=== PATIENT | male | born 1960 | race Caucasian/White ===

== ENCOUNTER 2016-06-26 08:53 | Emergency (ER) | payer SELFPAY ==
[2016-06-26] MEDS ORDERED: ASPIRIN 81 MG TABLET, CHEWABLE PO ONE (09:10)
[2016-06-26] MEDS ORDERED: PENICILLIN V POTASSIUM 500 MG TABLET PO ONE (09:47)
[2016-06-26] MEDS ORDERED: OXYCODONE-ACETAMINOPHEN 5-325 MG TABLET PO ONE (09:47)
[2016-06-26] MEDS ORDERED: FAMOTIDINE 20 MG TABLET PO ONE (10:14)
--- NOTE | 2016-06-26 10:26 | ER Document Report ---
ED General - General Chief Complaint: Chest Pain Stated Complaint: TOOTH PAIN Notes: Patient is a 55-year-old male who presents to the emergency Department with multiple complaints. He states today that his main complaint is his tooth pain. Patient states that he has horrible dentition and that over the past 3 days he has had severe upper and lower jaw pain that the primary site is right upper over teeth 3 and 4. Patient denies any foul odor, drainage or swelling at the site chest pain. Otherwise he is able to swallow without any difficulty. Patient states she is normally not able to chew because he has such terrible dentition. His secondary complaint today is chest pains. Patient states that he had an WA in March 2016 and he has cardiac stents that he cannot state location. Patient has been following with Dr. Ervin cardiology across the street. He was recently told that his chest pain since March has likely been related to indigestion but has not been prescribed medication for symptoms. Patient states he has chest pressure that is relieved with burping completely. States he finds it is burping more after eating. Otherwise he states he is intermittent and burning pains in his stomach. Patient denies any periods of chest pain described as pressure associated shortness of breath pressure is chest. Denies any chest pain when he came out of sleep for rest. Patient is also complaining of left shoulder pain. Patient states that he has a dull ache on the back of his left shoulder but occasionally radiates down his left arm states it is worse with physical activity and sometimes improves with rest. He is also complaining of foot pain. Patient has a history of diabetes mellitus and states that he has had tingling in his feet with muscle spasms in his toes over the past 3 Months. Does not have a primary care provider TRAVEL OUTSIDE OF THE [place] IN LAST 30 DAYS: No - Related Data Allergies/Adverse Reactions: acetaminophen [From Vicodin] Adverse Reaction (Verified 06/26/16 09:23) Hives hydrocodone [From Vicodin] Adverse Reaction (Verified 06/26/16 09:23) Hives Past Medical History - General Information source: Patient - Social History Smoking Status: Never Smoker Family History: Reviewed & Not Pertinent, Arthritis, CAD, Hyperlipidemia, Hypertension, Malignancy Patient has suicidal ideation: No Patient has homicidal ideation: No - Past Medical History Cardiac Medical History: Reports: Hx Heart Attack, Hx Hypertension Pulmonary Medical History: Denies: Hx Tuberculosis Neurological Medical History: Reports: Hx Migraine Endocrine Medical History: Reports: Hx Diabetes Mellitus Type 2 Renal/ Medical History: Denies: Hx Peritoneal Dialysis GI Medical History: Reports: Hx Gastroesophageal Reflux Disease, Hx Hiatal Hernia Musculoskeltal Medical History: Reports Hx Arthritis Psychiatric Medical History: Reports: Hx Depression Past Surgical History: Reports: Hx Abdominal Surgery - hernia repair, Hx Cardiac Catheterization - Mar 2016, Hx Herniorrhaphy, Hx Inguinal Hernia. Denies: Hx Pacemaker - Immunizations Hx Diphtheria, Pertussis, Tetanus Vaccination: Yes Review of Systems - Review of Systems Constitutional: No symptoms reported EENT: See HPI Cardiovascular: No symptoms reported Respiratory: No symptoms reported Gastrointestinal: See HPI. denies: Nausea Genitourinary: No symptoms reported Male Genitourinary: No symptoms reported Musculoskeletal: See HPI Skin: No symptoms reported Hematologic/Lymphatic: No symptoms reported Neurological/Psychological: No symptoms reported Physical Exam - Vital signs Vitals: Temp Pulse Resp BP Pulse Ox 97.9 F 77 18 129/88 H 96 06/26/16 09:05 06/26/16 09:05 06/26/16 09:05 06/26/16 09:05 06/26/16 09:05 - General General appearance: Appears well, Alert In distress: Mild - HEENT Head: Normocephalic Eyes: Normal Conjunctiva: Normal Mouth/Lips: Caries - all teeth, Dental fracture Mucous membranes: Normal Teeth diagram: 1 - pain 2 - pain Pharynx: Normal Neck: Normal - Respiratory Respiratory status: No respiratory distress Chest status: Nontender Breath sounds: Normal Chest palpation: Normal - Cardiovascular Rhythm: Regular Heart sounds: Normal auscultation Murmur: No Pulses: Normal: Radial, Dorsalis pedis Normal capillary refill: Yes - Abdominal Inspection: Normal Distension: No distension Bowel sounds: Normal Tenderness: Nontender Organomegaly: No organomegaly - Back Back: Normal, Nontender - Extremities General upper extremity: Normal inspection, Nontender, Normal color, Normal ROM , Normal strength, Normal temperature. No: Edema General lower extremity: Normal inspection, Nontender, Normal ROM, Normal strength, Normal temperature, Normal weight bearing. No: Edema, Normal color, Ross's sign Foot: Normal. No: Metatarsal compress. pain - Neurological Neuro grossly intact: Yes Cognition: Normal Orientation: AAOx4 [place] Coma Scale Eye Opening: Spontaneous Vu Coma Scale Verbal: Oriented [place] Coma Scale Motor: Obeys Commands [place] Coma Scale Total: 15 Speech: Normal - Skin Skin Temperature: Warm Skin Moisture: Dry Skin Color: Normal Course - Re-evaluation Re-evalutation: 06/26/16 11:50 Patient is a 55-year-old male who is hemodynamically stable, no acute distress and afebrile complaining of multitude symptoms but mainly toothache. Patient is due to see a dentist next week for evaluation and likely full extraction. Patient will be treated with by mouth penicillin and pain medication. In regards to his neck pain educated on calming causes of trapezius inflammation and exercises and ways to reduce that stress. For his indigestion, patient states that he will try the Pepcid and can follow-up with Dr. Ervin. Otherwise patient is medically stable stable for discharge - Vital Signs Vital signs: Temp Pulse Resp BP Pulse Ox 97.9 F 76 18 129/88 H 100 06/26/16 09:08 06/26/16 09:08 06/26/16 11:00 06/26/16 09:08 06/26/16 09:53 - Laboratory Result Diagrams: 06/26/16 10:30 Laboratory results interpreted by me: 06/26/16 10:30 Sodium 136.4 L Potassium 5.4 H BUN 31 H Glucose 315 H - EKG Interpretation by Ne EKG shows normal: Sinus rhythm Rate: Normal When compared to previous EKG there are: Changes noted - evidence of inverted T waves inleads II and avf conssitent with old WA in March. Otherwise, no acute changes or evidence of STEMI Discharge - Discharge Clinical Impression: Toothache GERD (gastroesophageal reflux disease) Qualifiers: Esophagitis presence: without esophagitis Qualified Code(s): K21.9 - Gastro- esophageal reflux disease without esophagitis Condition: Good Disposition: HOME, SELF-CARE Instructions: Penicillin V K ([facility]) Additional Instructions: CHEST PAIN OF UNCLEAR CAUSE: The exact cause of your chest pain isn't clear. Fortunately, there is no evidence of a dangerous medical condition. Further testing may be required to find the source of the pain. Most often, we find that this pain is coming from the chest wall -- the muscles or rib joints in the chest. But chest pain can come from the lung and lung lining, the esophagus, the heart valves or heart lining, and even the stomach or gallbladder. Rest. Eat lightly until the pain is gone. We may prescribe medicine for pain and inflammation. You should call the physician immediately if the pain radiates to the shoulder, jaw or arms; if you start to run a fever or develop a cough; or if you develop shortness of breath, or other new or alarming symptoms. NORMAL EXAM AND WORKUP: At this time, your examination and workup show no significant abnormality. No significant abnormal physical findings were noted. All laboratory, EKG, and imaging (x-ray, CT scans, ultrasound) studies that were ordered show no significant abnormality. Although your examination and all studies that were ordered showed no significant abnormal finding, there are no examinations and no studies that are 100% accurate. There is always the possibility that some abnormality could exist and not be detected with physical examination or within the limits and capabilities of laboratory and other studies. You should return or follow up as you were instructed on your visit today for further evaluation if your symptoms do not resolve. ACID REFLUX DISEASE (GERD): Gastro-Esophageal Reflux Disease (GERD) is caused by stomach acid refluxing back up into the esophagus. The valve at the end of the esophagus may be weak. This is common in persons with a hiatal hernia. GERD symptoms can include indigestion, chest pain, heartburn, or food "sticking." Certain foods, alcohol, and aspirin can make GERD worse. Treatment depends on the severity. Usually, antacids or acid-suppressing medicines are used. When the esophagus is acutely inflamed, the physician will often prescribe membrane-protective drugs such as Carafate. Some patients benefit from medication such as Reglan that tightens the valve at the top of the stomach. Avoid those foods that bring on your symptoms. For many people, these foods are coffee, chocolate, onions, garlic, and carbonated drinks. Don't use alcohol, aspirin, caffeine, or tobacco. Don't eat late at night -- within 4 hours of bedtime. Don't over-eat. If necessary, elevate the head of your bed about 4 inches so that stomach acid will not roll up into your esophagus. Call the doctor if you develop severe chest pain, inability to swallow fluids, fever, or worsening symptoms. ANTACID THERAPY: You have been instructed to start antacid therapy. Antacids directly neutralize stomach acid. This is useful for acid irritation of the esophagus, gastritis, and ulcers. You should take two tablespoons of antacid one hour after each meal and three hours after each meal. If you are not eating, take the antacid every two hours. If you are using a concentrate (such as Maalox TC), use only one tablespoon. Many antacids affect the bowels. The most common problem is diarrhea. In this case, a pure aluminum hydroxide antacid (such as AlternaGel) can be substituted for some or all doses. If the problem is constipation, add a teaspoon of Milk of Magnesia to each dose. Call the doctor if you experience continued diarrhea or constipation, or if you develop lightheadedness, bloody stool or vomitus, severe abdominal pain, or black stool. FOLLOW-UP CARE: If you have been referred to a physician for follow-up care, call the physician s office for an appointment as you were instructed or within the next two days. If you experience worsening or a significant change in your symptoms, notify the physician immediately or return to the Emergency Department at any time for re-evaluation. Toothache Your pain is due to dental decay. The tooth must be repaired in order for you to feel better. You will, therefore, be referred to a dentist. Severe swelling or drainage around a tooth usually means a deep dental abscess. This also requires evaluation and treatment by the dentist, but antibiotics may be prescribed while awaiting dental treatment. You should be rechecked immediately if you develop major swelling of the face, increasing pain, a lump in the jaw or gums, headache, or fever. Prescriptions: Oxycodone HCl/Acetaminophen [Percocet 5-325 mg Tablet] 1 tab PO Q6HP PRN #15 tab PRN Reason: Famotidine [Pepcid 20 mg Tablet] 20 mg PO DAILY #12 tablet Penicillin V Potassium [Penicillin Vk 500 mg Tablet] 500 mg PO BID 10 Days Referrals: MIGNON ERVIN MD [Primary Care Provider] - Follow up as needed
[2016-06-26 11:18] LABS: ALANINE AMINOTRANSFERASE 34 U/L (21-72); ALBUMIN 4.1 g/dL (3.5-5.0); ALKALINE PHOSPHATASE 82 U/L (38-126); ANION GAP 10 (5-19); ASPARTATE AMINO TRANSFERASE 18 U/L (17-59); BILIRUBIN,TOTAL 0.6 mg/dL (0.2-1.3); BLOOD UREA NITROGEN 31 mg/dL (7-20); CALCIUM 9.6 mg/dL (8.4-10.2); CARBON DIOXIDE 27 mmol/L (22-30); CHLORIDE 99 mmol/L (98-107); CREATININE RESULT 0.96 mg/dL (0.52-1.25); GLUCOSE 315 mg/dL (75-110); POTASSIUM 5.4 mmol/L (3.6-5.0); SODIUM 136.4 mmol/L (137-145); TOTAL PROTEIN 6.6 g/dL (6.3-8.2)
[2016-06-26 12:02] VITALS: BP 122/84
--- NOTE | 2016-06-26 15:48 | EKG REPORT ---
SEVERITY:- ABNORMAL ECG - SINUS RHYTHM INFERIOR INFARCT, AGE INDETERMINATE : Confirmed by: Danilo Ashton 26-Jun-2016 15:48:16
== END 2016-06-26 11:58 | disposition home or self-care (01) ==
LOC: ER 08:53
DX: K08.89 Other specified disorders of teeth and supporting structures (principal); K21.9 Gastro-esophageal reflux disease without esophagitis; R07.9 Chest pain, unspecified
CPT/HCPCS: 36415; 80053; 93005; 93010; 99285

== ENCOUNTER 2016-11-28 10:13 | Observation (INO) | payer SELFPAY ==
--- NOTE | 2016-11-28 10:28 | ER Document Report ---
ED General - General Stated Complaint: CHEST PAIN Time Seen by Provider: 11/28/16 10:18 Notes: 56-year-old male with a history of FL and all the risk factors, presents to the ED with generalized weakness dizziness and sudden onset left-sided chest pain radiating to the right chest, dull and pressure-like, similar to prior MRI, approximately 1 hour ago while taking a shower. Associated with sweating nausea and vomiting. Brought in by EMS. No syncope. EMS gave aspirin, the also give nitro with relief of pain to the applied a nitroglycerin patch. That resulted in hypotension to 90 systolic which was treated with 1 L of fluid. Patient is currently pain-free, except for some tooth pain. He does not have her follow-up with cardiology, Dr. Ervin, but states he is taking all his medications. TRAVEL OUTSIDE OF THE [place] IN LAST 30 DAYS: No - Related Data Allergies/Adverse Reactions: acetaminophen [From Vicodin] Adverse Reaction (Verified 06/26/16 09:23) Hives hydrocodone [From Vicodin] Adverse Reaction (Verified 06/26/16 09:23) Hives Past Medical History - Social History Smoking Status: Never Smoker Family History: Reviewed & Not Pertinent, Arthritis, CAD, Hyperlipidemia, Hypertension, Malignancy - Past Medical History Cardiac Medical History: Reports: Hx Heart Attack, Hx Hypertension Pulmonary Medical History: Denies: Hx Tuberculosis Neurological Medical History: Reports: Hx Migraine Endocrine Medical History: Reports: Hx Diabetes Mellitus Type 2 Renal/ Medical History: Denies: Hx Peritoneal Dialysis GI Medical History: Reports: Hx Gastroesophageal Reflux Disease, Hx Hiatal Hernia Musculoskeltal Medical History: Reports Hx Arthritis Psychiatric Medical History: Reports: Hx Depression Past Surgical History: Reports: Hx Abdominal Surgery - hernia repair, Hx Cardiac Catheterization - Mar 2016, Hx Herniorrhaphy, Hx Inguinal Hernia. Denies: Hx Pacemaker - Immunizations Hx Diphtheria, Pertussis, Tetanus Vaccination: Yes Review of Systems - Review of Systems Notes: GEN: Denies fever, chills, weight loss ENT: Denies sore throat, nasal discharge, ear pain EYES: Denies blurry vision, eye pain, discharge CV: D pain RESP: Denies cough, shortness of breath, wheezing GI: No vomiting or diarrhea MSK: Denies joint pain/swelling, edema, SKIN: Denies rash, skin lesions LYMPH: Denies swollen glands/lymph nodes NEURO: Denies headache, focal weakness or numbness, dizziness PSYCH: Denies depression, suicidal or homicidal ideation -: Yes ROS unobtainable due to patient's medical condition Physical Exam - Vital signs Vitals: Pulse Ox 98 11/28/16 10:15 - Notes Notes: General: No acute distress, well-nourished slightly pale. Wearing a nitroglycerin patch. Head: Atraumatic, normocephalic ENT: Mouth normal, oropharynx moist, no exudates or tonsillar enlargement Eyes: Conjunctiva normal, pupils equal, lids normal Neck: No JVD, supple, no guarding CVS: Normal rate, regular rhythm, no murmurs Resp: No resp distress, equal and normal breath sounds bilaterally GI: Nondistended, soft, no tenderness to palpation, no rebound or guarding Ext: No deformities, no edema, normal range of motion in upper and lower ext Skin: No rash, warm Lymphatic: No lymphadeopathy noted Neuro: Awake, alert. Face symmetric. Course - Re-evaluation Re-evalutation: 11/28/16 10:27 56-year-old male presents with typical sounding chest pain and a history of FL. Questionable compliance with meds. Initial prehospital hypotension likely due to nitroglycerin, now resolved. Exam normal except for pallor. EKG nonischemic at this time. Patient had a heart score of 4 assuming a normal troponin. Despite this, his story is concerning, and he is being kept painfree by the nitroglycerin. Will be admitted for possible unstable angina. In the meantime will gets serial EKG, labs, chest x-ray. 11/28/16 11:25 Patient remains pain-free. Labs are normal. EKG and chest x-ray normal. Given his risk factors he was admitted. Accepted by Dr. Coto at 11:25 AM to observation telemetry. - Vital Signs Vital signs: Temp Pulse Resp BP Pulse Ox 98.2 F 12 130/69 H 95 11/28/16 10:27 11/28/16 11:01 11/28/16 11:01 11/28/16 11:01 - Laboratory Result Diagrams: 11/28/16 10:20 11/28/16 10:20 Laboratory results interpreted by me: 11/28/16 11/28/16 10:20 10:20 WBC 11.0 H Hgb 13.0 L BUN 21 H Glucose 305 H AST 13 L Creatine Kinase 42 L Total Protein 5.3 L Albumin 3.0 L - Diagnostic Test Radiology reviewed: Image reviewed Radiology results interpreted by me: 11/28/16 11:25 Negative chest - EKG Interpretation by Me EKG shows normal: Sinus rhythm Rate: Normal Rhythm: NSR Additional EKG results interpreted by me: 11/28/16 10:27 No acute ischemic change Discharge - Discharge Admitting Provider: Hospitalist Unit Admitted: Telemetry Referrals: MIGNON ERVIN MD [Primary Care Provider] - Follow up as needed
[2016-11-28 10:38] LABS: ABSOLUTE BASOPHILS # (AUTO) 0.1 10^3/uL (0.0-0.2); ABSOLUTE EOSINOPHILS # (AUTO) 0.2 10^3/uL (0.0-0.6); ABSOLUTE LYMPHOCYTES (AUTO) 4.3 10^3/uL (0.5-4.7); ABSOLUTE NEUT (AUTO) 5.4 10^3/uL (1.7-8.2); BASOPHILS % (AUTO) 1.1 % (0-2); EOSINOPHILS % (AUTO) 1.9 % (0-6); HEMATOCRIT 39.1 % (37.9-51.0); HGB HCT DIFFERENCE -0.1; LYMPHOCYTES % (AUTO) 38.7 % (13-45); MEAN CORPUSCULAR HGB CONC 33.3 g/dL (32.0-36.0); MEAN CORPUSCULAR VOLUME 84 fl (80-97); MONOCYTES % (AUTO) 9.4 % (3-13); RED BLOOD COUNT 4.64 10^6/uL (4.35-5.55); RED CELL DISTRIBUTION WIDTH 13.7 % (11.5-14.0); SEGMENTED NEUTROPHILS % (AUTO) 48.9 % (42-78)
[2016-11-28 10:57] LABS: ALANINE AMINOTRANSFERASE 23 U/L (21-72); ALKALINE PHOSPHATASE 72 U/L (38-126); ANION GAP 8 (5-19); ASPARTATE AMINO TRANSFERASE 13 U/L (17-59); BILIRUBIN,DIRECT 0.3 mg/dL (0.0-0.4); BILIRUBIN,TOTAL 0.5 mg/dL (0.2-1.3); BLOOD UREA NITROGEN 21 mg/dL (7-20); CALCIUM 9.3 mg/dL (8.4-10.2); CARBON DIOXIDE 26 mmol/L (22-30); CHLORIDE 104 mmol/L (98-107); CREATINE KINASE 42 U/L (55-170); CREATININE RESULT 0.98 mg/dL (0.52-1.25); GLUCOSE 305 mg/dL (75-110); POTASSIUM 4.8 mmol/L (3.6-5.0); SODIUM 137.8 mmol/L (137-145); TOTAL PROTEIN 5.3 g/dL (6.3-8.2)
--- NOTE | 2016-11-28 11:05 | RADIOLOGY REPORT (SQ) ---
EXAM DESCRIPTION: CHEST SINGLE VIEW COMPLETED DATE/TIME: 11/28/2016 10:48 am REASON FOR STUDY: bed 5 cp COMPARISON: 09/28/2015 NUMBER OF VIEWS: One view. TECHNIQUE: Single frontal radiographic view of the chest acquired. LIMITATIONS: None. FINDINGS: LUNGS AND PLEURA: No opacities, masses or pneumothorax. No pleural effusion. MEDIASTINUM AND HILAR STRUCTURES: No masses. Contour normal. HEART AND VASCULAR STRUCTURES: Heart normal in size. Normal vasculature. BONES: No acute findings. HARDWARE: None in the chest. OTHER: No other significant finding. IMPRESSION: NO SIGNIFICANT RADIOGRAPHIC FINDING IN THE CHEST. TECHNICAL DOCUMENTATION: JOB ID: [id number] [employer] All Rights Reserved
[2016-11-28 11:10] LABS: CREATINE KINASE MB 0.52 ng/mL (<4.55)
[2016-11-28 11:12] LABS: TROPONIN I < 0.012 ng/mL
[2016-11-28] MEDS ORDERED: ONDANSETRON HCL INJ/PF 4 MG/2 ML SDV IV ONE (11:29)
[2016-11-28] MEDS ORDERED: DEXTROSE 40% GEL 15 GM TUBE PO PRN ×2 (12:01)
[2016-11-28] MEDS ORDERED: ONDANSETRON HCL INJ/PF 4 MG/2 ML SDV IV PRN (12:01)
[2016-11-28] MEDS ORDERED: DEXTROSE 50%-WATER 25 GM/50 ML DISP.SYRIN IV PRN ×2 (12:01)
[2016-11-28] MEDS ORDERED: GLUCAGON,HUMAN RECOMB 1 MG INJ IM PRN (12:01)
[2016-11-28] MEDS ORDERED: REGADENOSON INJ 0.4 MG/5 ML DISP.SYRIN IV ONE (12:25)
[2016-11-28 12:50] LABS: PROTHROMBIN TIME 12.7 SEC (11.4-15.4)
[2016-11-28 12:51] LABS: PARTIAL THROMBOPLASTIN TIME 22.8 SEC (23.5-35.8)
[2016-11-28] MEDS ORDERED: METOPROLOL TARTRATE 25 MG TABLET PO ONE (13:00)
[2016-11-28] MEDS ORDERED: LISINOPRIL 5 MG TABLET PO ONE (13:00)
[2016-11-28] MEDS ORDERED: ISOSORBIDE MONONITRATE 60 MG TAB.ER.24H PO ONE (13:00)
[2016-11-28] MEDS ORDERED: ASPIRIN 81 MG TABLET, ENT COATED PO ONE (13:00)
--- NOTE | 2016-11-28 13:00 | PDOC H&P ---
History of Present Illness Admission Date/PCP: 11/28/16 12:01 MIGNON ERVIN Patient complains of: chest pain History of Present Illness: DAVION DELCID is a 56 year old male presents to the ED from home with worsening chest pain described as left sided sharp stabbing pain radiating into the right chest occurring during hot shower with asct'd nausea, vomiting, dizziness, ZAMORANO, jaw and teeth pain - all similar to the symptoms he experienced with his AMI this past April requiring stent placement at [facility]. He reports intermittent symptoms like those above but less intense on a daily basis since his MD. He reported this to Dr Ervin, his usual case monitor on f/ u visit in July and was started on Imdur but has not noticed a difference and has not sought further medical care until today, nearly 5 months later. eval in ED so far negative for acute ischemia but given his risk factors and prior hx of similar symptoms, we were asked to admit for further eval and treatment. Past Medical History Cardiac Medical History: Reports: Myocardial Infarction, Hypertension Pulmonary Medical History: Denies: Tuberculosis Neurological Medical History: Reports: Migraine Endocrine Medical History: Reports: Diabetes Mellitus Type 2 GI Medical History: Reports: Gastroesophageal Reflux Disease, Hiatal Hernia Musculoskeltal Medical History: Reports: Arthritis Psychiatric Medical History: Reports: Depression Past Surgical History Past Surgical History: Reports: Cardiac Catheterization - Mar 2016, Herniorrhaphy Denies: Pacemaker Social History Smoking Status: Never Smoker Hx Recreational Drug Use: No Hx Prescription Drug Abuse: No - Advance Directive Resuscitation Status: Full Code Family History Family History: Arthritis, CAD, Hyperlipidemia, Hypertension, Malignancy Parental Family History Reviewed: Yes Children Family History Reviewed: Yes Sibling(s) Family History Reviewed.: Yes Medication/Allergy Home Medications: Atorvastatin Calcium [Lipitor 80 mg Tablet] 80 mg PO QHS 11/28/16 Glipizide [Glipizide ER] 5 mg PO QAM 11/28/16 Lisinopril [Prinivil 5 mg Tablet] 5 mg PO DAILY 11/28/16 Metoprolol Tartrate [Lopressor 25 mg Tablet] 25 mg PO Q12 11/28/16 Pantoprazole Sodium [Protonix] 40 mg PO DAILY 11/28/16 Allergies/Adverse Reactions: acetaminophen [From Vicodin] Adverse Reaction (Verified 06/26/16 09:23) Hives hydrocodone [From Vicodin] Adverse Reaction (Verified 06/26/16 09:23) Hives Review of Systems All systems: reviewed and no additional remarkable complaints except as stated - as per HPI, all systems reviewed, remaining systems negative Physical Exam Vital Signs: Temp Pulse Resp BP Pulse Ox 98.2 F 12 130/69 H 95 11/28/16 10:27 11/28/16 11:01 11/28/16 11:01 11/28/16 11:01 General appearance: PRESENT: mild distress - retching when i arrived, well- developed, well-nourished Head exam: PRESENT: atraumatic, normocephalic Eye exam: PRESENT: EOMI. ABSENT: conjunctival injection, scleral icterus Teeth exam: PRESENT: dental caries, poor dentation Neck exam: PRESENT: full ROM. ABSENT: JVD Respiratory exam: PRESENT: clear to auscultation madie. ABSENT: accessory muscle use, unlabored Cardiovascular exam: PRESENT: RRR. ABSENT: systolic murmur, tachycardia Pulses: PRESENT: normal radial pulses, normal dorsalis pedis pul Vascular exam: PRESENT: normal capillary refill GI/Abdominal exam: PRESENT: normal bowel sounds, soft. ABSENT: tenderness Musculoskeletal exam: PRESENT: ambulatory, full ROM Neurological exam: PRESENT: alert, awake, oriented to person, oriented to place , oriented to time Psychiatric exam: PRESENT: appropriate affect, normal mood Skin exam: PRESENT: warm. ABSENT: dry - diaphoretic and pale Results Laboratory Results: 11/28/16 10:20 11/28/16 10:20 MCV 84 fl (80-97) 11/28/16 10:20 MCH 28.0 pg (27.0-33.4) 11/28/16 10:20 MCHC 33.3 g/dL (32.0-36.0) 11/28/16 10:20 RDW 13.7 % (11.5-14.0) 11/28/16 10:20 Seg Neutrophils % 48.9 % (42-78) 11/28/16 10:20 Lymphocytes % 38.7 % (13-45) 11/28/16 10:20 Monocytes % 9.4 % (3-13) 11/28/16 10:20 Eosinophils % 1.9 % (0-6) 11/28/16 10:20 Basophils % 1.1 % (0-2) 11/28/16 10:20 Absolute Neutrophils 5.4 10^3/uL (1.7-8.2) 11/28/16 10:20 Absolute Lymphocytes 4.3 10^3/uL (0.5-4.7) 11/28/16 10:20 Absolute Monocytes 1.0 10^3/uL (0.1-1.4) 11/28/16 10:20 Absolute Eosinophils 0.2 10^3/uL (0.0-0.6) 11/28/16 10:20 Absolute Basophils 0.1 10^3/uL (0.0-0.2) 11/28/16 10:20 Chloride 104 mmol/L (98-107) 11/28/16 10:20 Carbon Dioxide 26 mmol/L (22-30) 11/28/16 10:20 Anion Gap 8 (5-19) 11/28/16 10:20 Est GFR ( Amer) > 60 (>60) 11/28/16 10:20 Est GFR (Non-Af Amer) > 60 (>60) 11/28/16 10:20 Glucose 305 mg/dL (75-110) H 11/28/16 10:20 Calcium 9.3 mg/dL (8.4-10.2) 11/28/16 10:20 Total Bilirubin 0.5 mg/dL (0.2-1.3) 11/28/16 10:20 AST 13 U/L (17-59) L 11/28/16 10:20 ALT 23 U/L (21-72) 11/28/16 10:20 Alkaline Phosphatase 72 U/L (38-126) 11/28/16 10:20 Total Protein 5.3 g/dL (6.3-8.2) L 11/28/16 10:20 Albumin 3.0 g/dL (3.5-5.0) L 11/28/16 10:20 Lipase 142.4 U/L (23-300) 11/28/16 10:20 11/28/16 11/28/16 10:20 10:20 Creatine Kinase 42 L CK-MB (CK-2) 0.52 Troponin I < 0.012 EKG Comments: NSR with no acute changes Impressions: Chest X-Ray 11/28/16 10:15 IMPRESSION: NO SIGNIFICANT RADIOGRAPHIC FINDING IN THE CHEST. Assessment & Plan - Diagnosis (1) ACS (acute coronary syndrome) Is this a current diagnosis for this admission?: YesPlan: new with hx of similar presentation, worrisome for recurrent ischemia though none noted clinically as yet. admit for monitoring and cardiac evaluation with serial enzymes and ecg's. consult dr garcia for decisions regarding stress testing and/or transfer for cath vs aggressive Rx management. ck CTA chest for dissection, etc. (2) CAD (coronary artery disease) Qualifiers: Coronary Disease-Associated Artery/Lesion type: [place] artery Associated angina: with unstable angina Is this a current diagnosis for this admission?: YesPlan: as above; prior stents (3) Diabetes Qualifiers: Diabetes mellitus type: type 2 Diabetes mellitus complication status: with neurologic complications Diabetes mellitus complication detail: with autonomic neuropathy Diabetes mellitus custodial insulin use: without custodial use Qualified Code(s): E11.43 - Type 2 diabetes mellitus with diabetic autonomic (poly)neuropathy Is this a current diagnosis for this admission?: YesPlan: stable; ck A1c and cover with SSI, hold metformin for contrasted study (4) HTN (hypertension) Qualifiers: Hypertension type: essential hypertension Qualified Code(s): I10 - Essential (primary) hypertension Is this a current diagnosis for this admission?: YesPlan: confirm and resume home medical regimen - Time Time Spent: 50 to 70 Minutes Medications reviewed and adjusted accordingly: Yes
--- NOTE | 2016-11-28 13:19 | RADIOLOGY REPORT (SQ) ---
EXAM DESCRIPTION: CTA CHEST COMPLETED DATE/TIME: 11/28/2016 12:55 pm REASON FOR STUDY: chest pain, eval for dissection COMPARISON: AP chest 11/28/2016, 02/13/2013 TECHNIQUE: CT scan of the chest performed using helical scanning technique with dynamic intravenous contrast injection. Images reviewed with lung, soft tissue and bone windows. Reconstructed coronal and sagittal MPR images reviewed. Additional 3 dimensional post-processing performed to develop Maximal Intensity Projection images (MO P). All images stored on PACS. All CT scanners at this facility use dose modulation, iterative reconstruction, and/or weight based d osing when appropriate to reduce radiation dose to as low as reasonably achievable (ALARA). [facility]: Dose Right [facility]: CareDose [facility]: Dose Right [facility]: Teradose 4D [facility]: Fixber CONTRAST TYPE AND DOSE: contrast/concentration: Isovue 370.00 mg/ml; Total Contrast Delivered: 68.0 ml; Total Saline Delivered: 110.0 ml RENAL FUNCTION: Creatinine 0.98 RADIATION DOSE: Up-to-date CT equipment and radiation dose reduction techniques were employed. CTDIv ol: 9.4 - 15.5 mGy. DLP: 570 mGy-cm. . LIMITATIONS: None. FINDINGS: LUNGS AND PLEURA: No masses, infiltrates, pneumothorax. No pleural effusions, calcificati ons. AORTA AND GREAT VESSELS: No aneurysm or dissection. HEART: No pericardial effusion. PULMONARY ARTERIES: No emboli visualized in the main pulmonary arteries or the segmental branches. HILAR AND MEDIASTINAL STRUCTURES: No identified masses or abnormal nodes. HARDWARE: Right-sided coronary stents are present. UPPER ABDOMEN: No significant findings. Limited exam. THYROID AND OTHER SOFT TISSUES: No masses. No adenopathy. BONES: No acute or significant finding. 3D MIPS: Confirm above findings. OTHER: No other significant finding. IMPRESSION: NORMAL CTA OF THE CHEST. NO PULMONARY EMBOLI. NO THORACIC AORTIC DISSECTION TECHNICAL DOCUMENTATION: JOB ID: [id number] Quality ID # [id number]: Final reports with documentation of one or more dose reduction techniques (e.g., Au tomated exposure control, adjustment of the mA and/or kV according to patient size, use of iterative reconstruction technique) 2010 [employer]- All Rights Reserved
[2016-11-28] MEDS: NORMAL SALINE 1000 ML 1,000 ML IV PRN (13:54)
[2016-11-28] MEDS: IBUPROFEN 600 MG TABLET PO PRN ×2 (14:26→23:15)
[2016-11-28] MEDS ORDERED: AMOXICILLIN TRIHYDRATE 500 MG CAPSULE PO ONE (15:00)
[2016-11-28] MEDS ORDERED: CLOPIDOGREL BISULFATE 75 MG TABLET PO ONE (15:45)
[2016-11-28] MEDS: INSULIN LISPRO 100 UNIT/ML 3 ML VIAL SUBCUT PRN ×2 (16:27→23:10)
[2016-11-28] MEDS: METOPROLOL TARTRATE 25 MG TABLET PO SCH (21:20)
[2016-11-28] MEDS: AMOXICILLIN TRIHYDRATE 500 MG CAPSULE PO SCH (21:23)
[2016-11-28] MEDS ORDERED: ATORVASTATIN CALCIUM 80 MG TABLET PO SCH (22:00)
--- NOTE | 2016-11-28 23:43 | EKG REPORT ---
SEVERITY:- ABNORMAL ECG - SINUS RHYTHM INFERIOR INFARCT, AGE INDETERMINATE : Confirmed by: Danilo Ashton 28-Nov-2016 23:42:42
--- NOTE | 2016-11-29 00:19 | CONSULTATION REPORT E ---
Consultation Report NAME: DAVION DELCID : [id number] AGE: 56Y DATE: 11/28/2016 404 B TO: MARISOL VERDIN M.D. FROM: THALIA GUNN M.D. Requesting Physician Note that the patient was seen at 3 p.m. Forty minutes spent on this patient with more than 50% of the time spent on direct patient care and this case, as mentioned later, involves highly complex medical decision making. HISTORY OF PRESENT ILLNESS: The patient is a 56-year-old male with a history of ST elevation DE in the inferior wall in April 2016, status post stents in the right coronary artery and PLV, states that since the past 5 months has been having chest pains with exertion and occasionally at rest. He complains of this as a sharp pain in the left front of the chest with radiation across the chest to the right side. It lasts for a minute or so and has several episodes in a day. He was placed on Imdur but this did not help. He also has shortness of breath along with this. He also has a history of nighttime palpitations which he describes as forceful beating of the heart. He states that the current chest pain is much different from his chest pain when he has the inferior wall ST elevation DE where he had gas-like pains and epigastric discomfort. He denies any PND or orthopnea but has dyspnea on exertion and palpitation but no syncope. He seems to be slightly anxious and also depressed. There is no syncopal episode and there are no TIA or CVA symptoms. In view of the escalation of the symptoms, the patient states that he came to the emergency room and was admitted for further cardiac workup. He denies any leg edema. There is no orthopnea or PND. PAST MEDICAL HISTORY: Positive for history of hypertension. He has a history of myocardial infarction with an inferior wall ST elevation DE in April 2016. He was airlifted from the field to [facility] where he underwent a cardiac catheterization. This showed his left main had no disease. The left anterior descending artery is of small caliber diffusely diseased vessel which wraps around the cardiac apex. There is a large first and moderate second diagonal. The LAD and its branches have severe diffuse disease with the most severe focus of stenosis being 60% to 70% stenosis prior to the second diagonal branch. The first diagonal has an ostial 80% stenosis. The circumflex consists of a large ramus intermedius, a small obtuse marginal 1 and a moderate obtuse marginal 2. His ramus intermedius has approximately 80% stenosis. It is of small caliber and diffusely diseased. The ostial circumflex has 80% stenosis with moderate plaguing noted in the mid and distal circumflex. The right coronary artery is dominant with a PDA and a subtotally occluded large bifurcating PLV branch. There is diffuse proximal 40% stenosis and 95% mid stenosis and a 50% distal stenosis and a 99% stenosis of the proximal portion of PLV branch. He had a bare metal stent placed in the mid right coronary artery and also a bare metal stent was placed in the proximal portion of the PLV and he was treated medically. He was on Brilinta and aspirin but since he could not afford Brilinta, he has been placed on Plavix and the patient states that the last dose of aspirin and Plavix was yesterday and he also got aspirin today. He has no history of congestive heart failure. There is no PND or orthopnea. He has nighttime palpitations he says which is like a force of rapid beating of the heart. There is no syncope or near syncope. There is no history of congenital heart disease. There is no history of rheumatic fever. He has a history of diabetes mellitus type 2 noninsulin dependent. He also has a history of hyperlipidemia. There is no history of thyroid disease. He has no history of TIA or CVA. He has a history of migraines. He has a history of anxiety and depression. There is no history of chronic kidney disease. He complains of arthritis but no collagen vascular disease. There is no history of congestive heart failure. His echocardiogram done on 04/03/16 showed normal mitral valve structure and function, no significant mitral regurgitation. There is mild stenosis of the trileaflet aortic valve without stenosis. There is no aortic insufficiency. There is mild tricuspid regurgitation seen. Left atrium is of normal size. The left ventricle size is normal. Global left ventricular systolic function is normal. Estimated ejection fraction of 55% to 60%. There is mild concentric left ventricular hypertrophy seen. There is no segmental wall motion abnormalities appreciated. There is abnormal left ventricular filling pattern consistent with diastolic dysfunction. PAST MEDICAL HISTORY: Positive for cardiac catheterization and stent placement in March 2016 and he has a history of herniorrhaphy. SOCIAL HISTORY: The patient does not smoke. There is no history of EtOH abuse. FAMILY HISTORY: Positive for arthritis, coronary artery disease, hyperlipidemia, hypertension and malignancy in patient and patient's brother. He states one of his sisters has a clotting disorder and has had an IVC filter placed. DISPOSITION: The patient is a FULL CODE. He states that his mother and brother are his surrogate healthcare decision maker. REVIEW OF SYSTEMS: CONSTITUTIONAL: Denies any fever, chills or rigors. Complains of generalized fatigue and migraines and weakness. HEENT: Head: History of migraines, history of headaches off and on. Eyes: The patient states that when he closes his right eye, he cannot see with his left eye; this has been recent. Also there is blurred vision in the right eye. There is no prior history of diabetic retinopathy. Ears: No history of hearing loss, no history of tinnitus, no history of recurrent ear infections. There is no vertigo. Nose: There is no history of nosebleeds. There is no history of nasal polyps. There is no history of hay fever. Mouth: No history of altered taste sensation, no history of ulcers in the mouth, no bleeding from the gums. Throat: There is no odynophagia or dysphagia, no history of recurrent sore throats. SKIN: There is no psoriasis. There is no yellowish discoloration of the skin. There is no pruritus. NECK: There is no symptoms of C-spine arthritis. There is no swelling in the neck and there is no goiter. LUNGS: No history of asthma or COPD. history of sleep apnea. No history of pulmonary embolism. No history of cough or sputum production. No history of wheezing. History of pleuritic chest pain. CARDIAC: History of hypertension present. History of coronary artery disease. History of inferior wall ST elevation DE with symptoms of burping and epigastric discomfort different from the cardiac pain. Although this pain is atypical, the patient states that it usually occurs when he exerts or ambulates himself. He also has decreased effort tolerance and also complains of shortness of breath with minimal exertion. He also has postural palpitations and awareness of postural beating of his heartbeats at night. He has no history of congestive heart failure, no history of leg edema, no history of syncope. No history of PND or orthopnea. MUSCULOSKELETAL: Complains of arthritis but no collagen vascular disease. States he has spinal stenosis and chronic back pain. ENDOCRINE: History of diabetes mellitus type 2 non-insulin dependent. No history of thyroid disease. He has no polydipsia or polyuria. No history of heat or cold intolerance. METABOLIC: History of hyperlipidemia present. GASTROINTESTINAL: History of GERD and hiatal hernia. No history of GI bleed. No history of cirrhosis. No history of fatty food intolerance. No history of altered bowel movements. No abdominal pain. No history of pancreatitis. RENAL: No history of chronic kidney disease. No history of symptoms of UTI. No history of hematuria, polyuria or dysuria. No symptoms of enlarged prostate. CENTRAL NERVOUS SYSTEM: No history of TIA or CVA. History of migraines present. No history of seizures. No history of sleep apnea and no history of gait intolerance. PSYCHIATRIC: No history of anxiety or depression. No history of suicidal or homicidal ideation. VASCULAR: No history of calf or buttock claudication. No history of DVT. HEMATOLOGICAL: No history of bleeding diathesis. No history of clotting disorders. He has chronic tooth pain due to bad teeth he states and he has off and on dental infections. At present also he has tooth pain. ALLERGIES: 1. OXYCODONE. 2. VICODIN. MEDICATIONS: 1. Amoxicillin 500 mg p.o. q.8 h. 2. Aspirin 81 mg p.o. x1 and 81 mg p.o. daily. 3. Atorvastatin 80 mg p.o. at bedtime. 4. Hypoglycemic precautions with glucose 40% gel 15 gm and 30 gm respectively p.r.n. hypoglycemia. 5. Dextrose 50% 12.5 gm and 25 gm IV p.r.n. hypoglycemia. 6. Glucagon 1 mg IM p.r.n. hypoglycemia. 7. Normal saline at 75 mL/hr 8. Accu-Chek before meals t.i.d. and at bedtime with sliding scale insulin coverage. 9. Isosorbide 30 mg p.o. daily. 10. Lisinopril 5 mg p.o. daily. 11. Metoprolol 25 mg p.o. q.12 h. 12. Zofran 4 mg IV q.6 h. p.r.n. PHYSICAL EXAMINATION: GENERAL: Patient is present at rest denies any chest pain or discomfort. He is slightly overweight. He is well groomed. VITAL SIGNS: He is afebrile with a temperature of 97.3 degrees Fahrenheit. Pulse is 58 beats per minute, blood pressure is 106/61, respirations are 18 per minute, 02 sats are 97% on room air. HEENT: Head is atraumatic, normocephalic. Eyes: Pupils are equal, round, regular, reactive to light and accommodation. As mentioned earlier, the patient states that he has loss of vision if he closes his right eye with the loss of vision being in his left eye and he has blurred vision in the right. Ears: Tympanic membranes are intact. External auditory canals are clear. There are no lesions of the pinnae. Nose: There is no deviated nasal septum. There are no nasal polyps. There is no inflammation of the nasal mucous membranes. Mouth: Mucous membranes of the mouth are moist. Tongue is moist. There are no ulcers. There is no bleeding from the gums. Throat: There is no redness of the oropharynx. There is no exudate. SKIN: There are no skin rashes. There is no petechia or ecchymosis. There are no skin lesions. NECK: Supple. There is no JVD. Carotids are equal. There is no bruit. There is no goiter. There is no JVD. There is no lymphadenopathy. Trachea is central. LUNGS: Clear to auscultation and percussion. HEART: S1 and S2 are heard. There is no S3 gallop. There is no S4 gallop. There is a systolic murmur in the left sternal border and the apex. There is no rub. ABDOMEN: Soft, nontender. There is no hepatosplenomegaly. Bowel sounds are well heard. There are no tender areas or masses. EXTREMITIES: Femorals are well felt. There are no femoral bruits. Leg pulses are well felt. There is no pedal edema. There is no DVT or cellulitis. There is no calf tenderness. There is no cyanosis or clubbing. CENTRAL NERVOUS SYSTEM: The patient is conscious, awake, alert, oriented x3 with no focal deficits. PSYCHIATRIC: The patient appears to be slightly anxious and also appears to be depressed. DIAGNOSTIC TEST RESULTS: The patient's chest and abdomen CTA shows normal CT of the chest with no pulmonary emboli, no thoracic or aortic dissection. The patient's chest x-ray is within normal limits. His EKG shows sinus rhythm, old inferior wall DE, no acute changes. His white count is 11,000, his hemoglobin is 13, his hematocrit is 39.1, platelet count is 342,000. His pro time is 12.7, his INR is 0.89, his PTT is 22.8. Earlier the patient's sodium was 137.8, potassium 4.8, chloride 104, CO2 26, the patient's BUN is 21, creatinine 0.98, GFR is greater than 60, glucose is 305. His liver function tests are normal with a low AST of 13, CK is 42, CPK-MB is negative, his first set of troponin I is less than 0.12, lipase is 142.4, total protein is 5.3, albumin is 3.0. IMPRESSION: 1. Atypical chest pain, but the patient gives conflicting history to different providers. 2. Coronary artery disease with a history of ST elevation DE of the inferior wall in March 2016. 3. History of stents in the right coronary artery and PLV with three-vessel coronary artery disease. 4. Three-vessel coronary artery disease. 5. Hypertension, well controlled. 6. Diabetes mellitus type 2 non-insulin dependent. 7. GERD. 8. *------*. 9. Hyperlipidemia. 10. Anxiety. 11. Depression. RECOMMENDATIONS: Would get serial EKGs and enzymes. Would start the patient back on Plavix 75 mg p.o. daily. Continue aspirin. Continue beta-rosina and nitrates. Once DE is ruled out, will set the patient up for IV Lexiscan Cardiolite stress test, most likely will do this on . Will get an echocardiogram in the a.m. Will repeat the patient's troponin I and EKG in the morning. NOTE: Forty minutes spent on this patient. The patient seen initially at 3 p.m. This is a highly complex medical decision making involvement in this case. Discussed with the patient. Also reviewed his records from [facility] and this was discussed with the patient. Also discussed with other caregiving providers on the case and coordinating a plan of care for this patient's medical condition. Will follow with you. Note that the patient's medications were reviewed and Plavix has been restarted by me. Note the EKG and chest x-ray were all reviewed by me. Thanking you. DICTATING PHYSICIAN: MARISOL VERDIN M.D. [id number] PHY#: [id number] ID: [id number] JOB#: [id number] ACCT: [id number] cc:MARISOL VERDIN M.D. >
[2016-11-29 04:55] LABS: ANION GAP 8 (5-19); BLOOD UREA NITROGEN 20 mg/dL (7-20); CALCIUM 9.7 mg/dL (8.4-10.2); CARBON DIOXIDE 26 mmol/L (22-30); CHLORIDE 104 mmol/L (98-107); CHOLESTEROL 136.66 mg/dL (0-200); CREATININE RESULT 0.94 mg/dL (0.52-1.25); Direct HDL 32 mg/dL (>40); GLUCOSE 148 mg/dL (75-110); POTASSIUM 4.3 mmol/L (3.6-5.0); SODIUM 137.7 mmol/L (137-145); TRIGLYCERIDES 161 mg/dL (<150)
[2016-11-29 05:01] LABS: VLDL CHOLESTEROL 32.2 mg/dL (10-31)
[2016-11-29] MEDS: NORMAL SALINE 1000 ML 1,000 ML IV PRN (05:04)
[2016-11-29 05:06] LABS: DIRECT LDL 79 mg/dL (<100)
[2016-11-29] MEDS: AMOXICILLIN TRIHYDRATE 500 MG CAPSULE PO SCH ×2 (05:51→14:17)
--- NOTE | 2016-11-29 08:51 | EKG REPORT ---
SEVERITY:- ABNORMAL ECG - SINUS RHYTHM INFERIOR INFARCT, AGE INDETERMINATE : Confirmed by: Danilo Ashton 29-Nov-2016 08:50:30
[2016-11-29] MEDS ORDERED: ISOSORBIDE MONONITRATE 60 MG TAB.ER.24H PO SCH (10:00)
[2016-11-29] MEDS ORDERED: LISINOPRIL 5 MG TABLET PO SCH (10:00)
[2016-11-29] MEDS ORDERED: ASPIRIN 81 MG TABLET, ENT COATED PO SCH (10:00)
[2016-11-29] MEDS ORDERED: CLOPIDOGREL BISULFATE 75 MG TABLET PO SCH (10:00)
[2016-11-29] MEDS: METOPROLOL TARTRATE 25 MG TABLET PO SCH (13:14)
[2016-11-29] MEDS: IBUPROFEN 600 MG TABLET PO PRN (14:17)
[2016-11-29 14:21] VITALS: BP 129/49
--- NOTE | 2016-11-29 14:53 | PDOC DISCHARGE SUMMARY ---
General - Admit/Disc Date/PCP Admission Date/Primary Care Provider: 11/28/16 12:01 MIGNON ERVIN Discharge Date: 11/29/16 - Discharge Diagnosis (1) ACS (acute coronary syndrome) Is this a current diagnosis for this admission?: YesSummary: ruled out with negative enzymes, ecgs and nuclear stress test, see dr garcia's dictations for details. stable for d/c home. (2) CAD (coronary artery disease) Is this a current diagnosis for this admission?: YesSummary: stable, maintain dual antiplt Tx and f/u with dr ervin as instructed (3) Diabetes Is this a current diagnosis for this admission?: YesSummary: poorly controlled, HgA1c 8.6. f/u with PCP for further dose adjustment and treatment. counseled regarding diet and lifestyle choices. (4) HTN (hypertension) Is this a current diagnosis for this admission?: YesSummary: well controlled, continue current regimen (5) Dental caries Is this a current diagnosis for this admission?: YesSummary: 2 wk course of abx and needs to f/u with outpt dentist at his earliest convenience - Additional Information Resuscitation Status: Full Code Discharge Diet: Cardiac Discharge Activity: Activity As Tolerated Home Medications: Atorvastatin Calcium [Lipitor 80 mg Tablet] 80 mg PO QHS 11/28/16 Glipizide [Glipizide ER] 5 mg PO QAM 11/28/16 Lisinopril [Prinivil 5 mg Tablet] 5 mg PO DAILY 11/28/16 Metoprolol Tartrate [Lopressor 25 mg Tablet] 25 mg PO Q12 11/28/16 Pantoprazole Sodium [Protonix] 40 mg PO DAILY 11/28/16 Amoxicillin Trihydrate [Amoxil 500 mg Capsule] 500 mg PO Q8 #42 capsule Aspirin [Ecotrin 81 mg EC Tablet] 81 mg PO DAILY tabec 11/29/16 Atorvastatin Calcium [Lipitor 80 mg Tablet] 80 mg PO QHS tablet 11/29/16 Clopidogrel Bisulfate [Plavix 75 mg Tablet] 75 mg PO DAILY tablet 11/29/16 Ibuprofen [Motrin 600 mg Tablet] 600 mg PO Q8HP PRN tablet 11/29/16 Isosorbide Mononitrate [Imdur 60 mg Tablet.er] 30 mg PO DAILY #30 tab.er.24h History of Present Illness Patient complains of: chest pain History of Present Illness: DAVION DELCID is a 56 year old male presents to the ED from home with worsening chest pain described as left sided sharp stabbing pain radiating into the right chest occurring during hot shower with asct'd nausea, vomiting, dizziness, ZAMORANO, jaw and teeth pain - all similar to the symptoms he experienced with his AMI this past April requiring stent placement at [facility]. Hospital Course Hospital Course: He reports intermittent symptoms like those above but less intense on a daily basis since his NV. He reported this to Dr Ervin, his usual manager trading on f/ u visit in July and was started on Imdur but has not noticed a difference and has not sought further medical care until today, nearly 5 months later. eval in ED so far negative for acute ischemia but given his risk factors and prior hx of similar symptoms, we were asked to admit for further eval and treatment. he ruled out for acute myocardial ischemia with negative enzymes, ecgs and ultimately negative nuclear stress test showing only old changes c/w with inferior and Rt sided CAD. Imdur added to his regimen and he was instructed to f/u with his primary manager trading in 1-2 wks for further treatement and risk stratification. he is noted to have severe dental disease and likely needs all his teeth removed but reports financial stressors limiting access to dental care. he is sent home with 2wk course of PCN and strongly encouraged to f/u with dentist of choice in the next 2 wks. I suspect the vast majority of his symptoms can be traced to his dental disease. Physical Exam Vital Signs: Temp Pulse Resp BP Pulse Ox 98.4 F 70 14 129/49 H 98 11/29/16 12:00 11/29/16 12:00 11/29/16 12:00 11/29/16 12:00 11/29/16 12:00 Intake & Output 11/28/16 11/29/16 11/30/16 06:59 06:59 06:59 Intake Total 120 Output Total 0 Balance 120 Weight 88.9 kg General appearance: PRESENT: no acute distress, well-developed, well-nourished Eye exam: PRESENT: EOMI Teeth exam: PRESENT: dental caries, poor dentation Respiratory exam: PRESENT: unlabored. ABSENT: accessory muscle use Cardiovascular exam: PRESENT: RRR. ABSENT: systolic murmur Neurological exam: PRESENT: alert, awake, oriented to person, oriented to place , oriented to time, oriented to situation Psychiatric exam: PRESENT: anxious, depressed Results Laboratory Results: 11/29/16 04:27 11/29/16 04:27 Sodium 137.7 Potassium 4.3 Chloride 104 Carbon Dioxide 26 Anion Gap 8 BUN 20 Creatinine 0.94 Est GFR ( Amer) > 60 Est GFR (Non-Af Amer) > 60 Glucose 148 H Calcium 9.7 Triglycerides 161 H Cholesterol 136.66 LDL Cholesterol Direct 79 VLDL Cholesterol 32.2 H HDL Cholesterol 32 L 11/28/16 11/28/16 11/29/16 16:20 22:25 04:27 Troponin I < 0.012 < 0.012 < 0.012 Impressions: Chest/Abdomen CTA 11/28/16 00:00 IMPRESSION: NORMAL CTA OF THE CHEST. NO PULMONARY EMBOLI. NO THORACIC AORTIC DISSECTION Chest X-Ray 11/28/16 10:15 IMPRESSION: NO SIGNIFICANT RADIOGRAPHIC FINDING IN THE CHEST. Qualifiers PATEINT BEING DISCHARGED WITH ANY OF THE FOLLOWING DIAGNOSIS?: No VTE patient discharged on overlapping Therapy?: No Reason(s) for not prescribing Overlap Therapy:: Not indicated Plan Discharge Plan: d/c home and f//u with PCP and manager trading and dentist as instructed Time Spent: Greater than 30 Minutes
--- NOTE | 2016-11-29 19:43 | PROGRESS NOTE E ---
Progress Note NAME: DAVION DELCID : [id number] AGE: 56Y DATE: 11/29/2016 ROOM: 404 SUBJECTIVE: Note: The patient had no further chest pain or discomfort. There is no shortness of breath. There is no PND or orthopnea. There is no leg edema. There are no palpitations. There are no arrhythmias seen on the monitor. The patient denies any TIA or CVA symptoms. There is no dizziness, syncope or near syncope. He complains of toothache and wants an antibiotic. He underwent a Lexiscan Cardiolite stress test today which was uneventful. The patient appears to be very emotional and at the time of his stress test was crying, although there were no untoward effects. OBJECTIVE: GENERAL: Patient is slightly overweight. He is well groomed. At present he is in no acute distress. VITAL SIGNS: He is afebrile with a temperature of 98.4 degrees Fahrenheit. Pulse is 70 beats per minute, blood pressure is 129/49, respirations are 14 per minute, 02 sats are 98% on room air. HEENT: Head is atraumatic, normocephalic. Eyes: Pupils are equal, round, regular, reactive to light and accommodation. External ocular movements are normal. There is no conjunctival pallor. There is no scleral icterus. The patient complains of blurred vision in the right eye and when he closes his right eye, he says he cannot see with his left eye. I am not sure if there is a functional component here. ENT is negative. NECK: Supple. There is no JVD. Carotids are equal. There is no bruit. There is no goiter. There is no lymphadenopathy. Trachea is central. LUNGS: Clear to auscultation and percussion. There is no chest wall tenderness. HEART: S1 and S2 are heard. There is no S3 gallop. There is no S4 gallop. There is a systolic murmur in the left sternal border and the apex. There is no rub. ABDOMEN: Soft, nontender. There is no hepatosplenomegaly. Bowel sounds are well heard. There are no tender areas or masses. EXTREMITIES: Femorals are well felt. There are no femoral bruits. Leg pulses are well felt. There is no pedal edema. There is no DVT or cellulitis. There is no calf tenderness. There is no cyanosis or clubbing. CENTRAL NERVOUS SYSTEM: The patient is conscious, awake, alert, oriented x3 with no focal deficits. PSYCHIATRIC: The patient appears to be slightly anxious and also appears to be depressed. He is also very emotional. DIAGNOSTIC TEST RESULTS: Note that the patient's IV Lexiscan Cardiolite stress test showed no reversible ischemia. There was evidence of scar in the inferior wall (he sustained an ST elevation NH in the inferior wall in March 2016) and also a small area of fixed defect in the LV apex. This has been discussed with the patient. The patient's sodium was 137.7, potassium 4.3, chloride 104, CO2 26, the patient's BUN is 20, creatinine 0.94, GFR is greater than 60, glucose is 148. His hemoglobin A1c is uncontrolled at 8.6 and his calcium is 9.7. Note early this morning his last set of troponins was negative at less than 0.012. The patient's triglycerides were slightly elevated at 161, his HDL is 32 which is low, his LDL is good at 79. IMPRESSION: 1. ATYPICAL CHEST PAIN, NO EVIDENCE OF NH, NO ACUTE EKG CHANGES AND NEGATIVE STRESS TEST FOR ISCHEMIA, POSITIVE FOR MYOCARDIAL INFARCTION THAT HE SUSTAINED IN THE PAST. 2. CORONARY ARTERY DISEASE WITH A HISTORY OF ST ELEVATION NH OF THE INFERIOR WALL IN MARCH 2016. 3. HISTORY OF STENTS IN THE RIGHT CORONARY ARTERY AND PLV WITH THREE-VESSEL CORONARY ARTERY DISEASE. 4. THREE-VESSEL CORONARY ARTERY DISEASE WITH DIFFUSE DISEASE WITH ALSO FOCAL SIGNIFICANT LESIONS. 5. HYPERTENSION, WELL CONTROLLED. 6. DIABETES MELLITUS TYPE 2 NON-INSULIN DEPENDENT. The patient hemoglobin A1c is 8.6, hence not well controlled. 7. GERD. 8. HYPERLIPIDEMIA. 9. ANXIETY. 10. DEPRESSION. 11. SPINAL STENOSIS WITH CHRONIC BACK PAIN. RECOMMENDATIONS: The Cardiolite stress test was discussed with the patient and also with the attending physician. Would recommend to discharge the patient home on Lopressor, aspirin, Plavix, beta-rosina and nitrates. Also the patient is being placed on antibiotics for his dental infection. Would also continue lisinopril. Even though the patient had a bare metal stent in March 2016, in view of the patient's diffusely diseased coronary arteries, it might be worthwhile keeping the patient on Plavix and aspirin, since the patient cannot afford Brilinta. The patient has been given my office number to follow up with me if he so desires. Would also recommend that the patient be placed on antidepressants and anti-anxiolytic agents. NOTE: Thirty-five minutes spent on this patient with more than 50% of the time spent on direct patient care and also reviewing the patient's medications and coordinating care with the attending physician on the case and with other caregivers on the case. I have given the patient my cell phone number to call me if he has any problems. Thanking you. Will sign off. DICTATING PHYSICIAN: MARISOL VERDIN M.D. [id number] PHY#: [id number] ID: [id number] JOB#: [id number] ACCT: [id number] cc: >
--- NOTE | 2016-11-30 19:22 | DRAGON STRESS TEST REPORT ---
Intravenous LexiScan Cardiolite stress test using single photon emmision computerized tomographic. Date of procedure: 11/29/2016. Ordering Provider: Dr. Andreas Coto. Patient Status.: Inpatient Indication: . Chest pain in a patient with coronary artery disease, old myocardial infarction, and history of stents in the circumflex and in the RCA and PLV branch of the right coronary artery. Coronary risk factors: Age, hypertension, diabetes type 2 [id number] , and dyslipidemia. Resting EKG: Sinus Bradycardia. Cannot exclude old inferior myocardial infarction. There is T-wave inversion in leads III and aVF. Stress EKG: No changes of ischemia. The patient had no chest pain or discomfort, and there were no arrhythmias seen. Due to infected tooth. Reason for termination: Protocol. Conclusions: Normal EKG and hemodynamic response to IV LexiScan. Nuclear data: At rest the patient was given 30.50 millicuries of technetium 99 sestamibi injected intravenously. As per protocol rest non gated SPECT images were obtained. Subsequently the patient was given intravenous LexiScan at a dose of 0.4 mg in 5 mL intravenously, followed by flush with normal saline. Subsequently the stress dose of 38.1 millicuries of technetium 99 sestamibi was injected intravenously. As per protocol stress gated images were obtained. Nuclear interpretation: Review of images showed that there there is liver and bowel contamination artifact of the inferior wall. In spite of this there note that the patient complained of toothache is a perfusion defect involving the inferior wall in both rest and stress images. This inferior wall area with a perfusion defect has decreased motion contraction and thickening. There is also a small area of the left anterior apex which has a perfusion defect in both the rest and stress images with decreased motion contraction and thickening in this area. The rest of the segments of the myocardium had normal perfusion at rest, and normal perfusion post stress with IV LexiScan. The rest of the segments of the myocardium had normal motion, contraction, and thickening by gated study. T. I D. ratio was normal at 1.04. Computer read rest, and stress left ventricular ejection fraction were 60 %, and 64 % respectively. Conclusions: 1. There is no scintigraphic evidence of LexiScan induced myocardial ischemia. 2. There is scintigraphic evidence of myocardial infarction/scar. involving the inferior wall, and a small area of the left ventricular apex Recommendations: 1.Aggressive treatment of coronary artery disease with the beta blockers statins nitrates aspirin and Plavix 2. Aggressive. risk factor modification, and treating the underlying co- morbidities MTDD
== END 2016-11-29 15:40 | disposition home or self-care (01) ==
LOC: ER 10:13 → UNDOADMOB 11:48 → EH 11:48 → 4N 12:55
PROVIDERS: ADMIT Family Medicine; ATTEND Family Medicine
DX: I24.9 Acute ischemic heart disease, unspecified (principal); I25.10 Atherosclerotic heart disease of native coronary artery without angina pectoris; E11.65 Type 2 diabetes mellitus with hyperglycemia; E11.43 Type 2 diabetes mellitus with diabetic autonomic (poly)neuropathy; I10 Essential (primary) hypertension; K02.9 Dental caries, unspecified; I25.2 Old myocardial infarction; F41.9 Anxiety disorder, unspecified; F32.9 Major depressive disorder, single episode, unspecified; H53.8 Other visual disturbances; H54.62 Unqualified visual loss, left eye, normal vision right eye; M48.00 Spinal stenosis, site unspecified; M19.90 Unspecified osteoarthritis, unspecified site; K21.9 Gastro-esophageal reflux disease without esophagitis; E78.5 Hyperlipidemia, unspecified; I95.2 Hypotension due to drugs; T46.3X5A Adverse effect of coronary vasodilators, initial encounter; Z79.899 Other long term (current) drug therapy; Z79.02 Long term (current) use of antithrombotics/antiplatelets; Z79.82 Long term (current) use of aspirin; Z79.84 Long term (current) use of oral hypoglycemic drugs; Z95.5 Presence of coronary angioplasty implant and graft; Z82.49 Family history of ischemic heart disease and other diseases of the circulatory system
CPT/HCPCS: 93005 ×2; 99285; 96374; 36415 ×2; 82553; 82962 ×2; 82550; 83690; 85025; 85610; 85730; 80048; 80053; 84484 ×2; 83036; 80061; 93017; 71010; 78452; 71275; 93010 ×2; G0378 ×3; A9500; J2785; J1815; J3490 ×2; J2405; J7030 ×2; Q9969

== ENCOUNTER 2017-03-29 11:06 | Emergency (ER) | payer OTHER ==
[2017-03-29] MEDS ORDERED: ASPIRIN 81 MG TABLET, CHEWABLE PO ONE (11:19)
[2017-03-29] MEDS ORDERED: BUPIVACAINE HCL 0.25% /EPINEPHRINE INJ/PF 30 ML SDV INFIL PRN (11:19)
[2017-03-29 11:47] LABS: ABSOLUTE BASOPHILS # (AUTO) 0.1 10^3/uL (0.0-0.2); ABSOLUTE LYMPHOCYTES (AUTO) 1.1 10^3/uL (0.5-4.7); ABSOLUTE MONOCYTES (AUTO) 0.7 10^3/uL (0.1-1.4); EOSINOPHILS % (AUTO) 0.5 % (0-6); HEMATOCRIT 42.2 % (37.9-51.0); HEMOGLOBIN 14.9 g/dL (13.5-17.0); HGB HCT DIFFERENCE 2.5; LYMPHOCYTES % (AUTO) 13.8 % (13-45); MEAN CORPUSCULAR HEMOGLOBIN 29.2 pg (27.0-33.4); MEAN CORPUSCULAR HGB CONC 35.3 g/dL (32.0-36.0); MEAN CORPUSCULAR VOLUME 83 fl (80-97); MONOCYTES % (AUTO) 8.9 % (3-13); RED CELL DISTRIBUTION WIDTH 13.7 % (11.5-14.0); SEGMENTED NEUTROPHILS % (AUTO) 75.8 % (42-78)
[2017-03-29 12:08] LABS: ALANINE AMINOTRANSFERASE 31 U/L (21-72); ALBUMIN 3.6 g/dL (3.5-5.0); ALKALINE PHOSPHATASE 91 U/L (38-126); ANION GAP 13 (5-19); ASPARTATE AMINO TRANSFERASE 18 U/L (17-59); BILIRUBIN,DIRECT 0.5 mg/dL (0.0-0.4); BILIRUBIN,TOTAL 1.2 mg/dL (0.2-1.3); BLOOD UREA NITROGEN 16 mg/dL (7-20); CALCIUM 9.9 mg/dL (8.4-10.2); CARBON DIOXIDE 23 mmol/L (22-30); CHLORIDE 101 mmol/L (98-107); CREATINE KINASE 37 U/L (55-170); CREATININE RESULT 0.91 mg/dL (0.52-1.25); GLUCOSE 310 mg/dL (75-110); LIPASE 96.6 U/L (23-300); POTASSIUM 4.7 mmol/L (3.6-5.0); TOTAL PROTEIN 6.2 g/dL (6.3-8.2)
[2017-03-29 12:20] LABS: CREATINE KINASE MB 0.87 ng/mL (<4.55)
[2017-03-29 12:21] LABS: TROPONIN I < 0.012 ng/mL
--- NOTE | 2017-03-29 13:07 | ER Document Report ---
ED Oral Problem - General Chief Complaint: Toothache Stated Complaint: TOOTH PAIN Time Seen by Provider: 03/29/17 11:13 Mode of Arrival: Medic Information source: Patient Notes: Patient is a 54-year-old male who presents to the ER via EMS today for toothache , all over my mouth." Patient states that this worsened 3 days ago but has tooth pain chronically as he has been seen here many times for toothache. Patient denies fever, chills, swelling or drainage. Patient also complains of Chest pain in the left chest that he had earlier today that is now gone. He has had a heart attack in the past. He denies any nausea or shortness of breath with this chest pain that happened earlier today. He denies any chest pain now. He has 1 stent placed. TRAVEL OUTSIDE OF THE [place] IN LAST 30 DAYS: No - Related Data Allergies/Adverse Reactions: acetaminophen [From Vicodin] Adverse Reaction (Verified 06/26/16 09:23) Hives hydrocodone [From Vicodin] Adverse Reaction (Verified 06/26/16 09:23) Hives Past Medical History - General Information source: Patient - Social History Smoking Status: Never Smoker Chew tobacco use (# tins/day): No Frequency of alcohol use: Rare Drug Abuse: None Family History: Arthritis, CAD, Hyperlipidemia, Hypertension, Malignancy - Past Medical History Cardiac Medical History: Reports: Hx Heart Attack - 04/19, Hx Hypertension Pulmonary Medical History: Denies: Hx Tuberculosis Neurological Medical History: Reports: Hx Migraine Endocrine Medical History: Reports: Hx Diabetes Mellitus Type 2 Renal/ Medical History: Denies: Hx Peritoneal Dialysis GI Medical History: Reports: Hx Gastroesophageal Reflux Disease, Hx Hiatal Hernia Musculoskeltal Medical History: Reports Hx Arthritis Psychiatric Medical History: Reports: Hx Depression Past Surgical History: Reports: Hx Abdominal Surgery - hernia repair, Hx Cardiac Catheterization - Mar 2016, Hx Herniorrhaphy, Hx Inguinal Hernia. Denies: Hx Pacemaker - Immunizations Hx Diphtheria, Pertussis, Tetanus Vaccination: Yes Review of Systems - Review of Systems Constitutional: No symptoms reported EENT: See HPI Cardiovascular: See HPI Respiratory: No symptoms reported Gastrointestinal: No symptoms reported Genitourinary: No symptoms reported Male Genitourinary: No symptoms reported Musculoskeletal: No symptoms reported Skin: No symptoms reported Hematologic/Lymphatic: No symptoms reported Neurological/Psychological: No symptoms reported Physical Exam - Notes Notes: PHYSICAL EXAMINATION: GENERAL: Crying, writhing in bed, holding right side of mouth, in mild acute distress. HEAD: Atraumatic, normocephalic. EYES: Pupils equal round and reactive to light, extraocular movements intact, sclera anicteric, conjunctiva are normal. ENT: horrible dentition, Most teeth are fractured down to the base, no obvious erythema, edema or abscess noted tender to entirety of gumlines NECK: Normal range of motion, supple without lymphadenopathy LUNGS: CTAB and equal. No wheezes rales or rhonchi. HEART: chest nontender to palpation, Regular rate and rhythm without murmurs ABDOMEN: Soft, no tenderness. No guarding, no rebound EXTREMITIES: Normal range of motion, no pitting edema. No cyanosis. NEUROLOGICAL: Cranial nerves grossly intact. Normal sensory/motor exams. PSYCH: Normal mood, normal affect. SKIN: Warm, Dry, normal turgor, no rashes or lesions noted Course - Re-evaluation Re-evalutation: 03/29/17 16:18 Lab work is unremarkable including normal cardiac enzymes. EKG reveals normal sinus rhythm without evidence of ischemia. I did perform a dental block with Marcaine, however patient's dental pain is really all over his mouth and this will not be sufficient to help with his pain. He is literally crying tears in the room. I did provide him with some pain medication here in the emergency department but will not send him home with a prescription as this is chronic and he has been seen here many times for this. I did give him information for the community dental clinic that he can go to. - Laboratory Result Diagrams: 03/29/17 11:30 03/29/17 11:30 Laboratory results interpreted by me: 03/29/17 11:30 Glucose 310 H Direct Bilirubin 0.5 H Creatine Kinase 37 L Total Protein 6.2 L Discharge - Discharge Clinical Impression: Toothache Chest pain Qualifiers: Chest pain type: unspecified Qualified Code(s): R07.9 - Chest pain, unspecified Condition: Stable Disposition: HOME, SELF-CARE Instructions: Toothache ([facility]) Additional Instructions: Return immediately for any new or worsening symptoms. Follow up with primary care provider, call tomorrow to make followup appointment. Prescriptions: Amoxicillin 500 mg PO TID #30 capsule Ibuprofen [Motrin 800 mg Tablet] 800 mg PO Q8H PRN #30 tab PRN Reason: Referrals: [facility] [Provider Group] - Follow up as needed
--- NOTE | 2017-03-29 13:14 | RADIOLOGY REPORT (SQ) ---
EXAM DESCRIPTION: CHEST SINGLE VIEW COMPLETED DATE/TIME: 03/29/2017 12:40 pm REASON FOR STUDY: chest pain COMPARISON: November 2016 EXAM PARAMETERS: NUMBER OF VIEWS: One view. TECHNIQUE: Single frontal radiographic view of the chest acquired. RADIATION DOSE: NA LIMITATIONS: None. FINDINGS: LUNGS AND PLEURA: No opacities, masses or pneumothorax. No pleural effusion. MEDIASTINUM AND HILAR STRUCTURES: No masses. Contour normal. HEART AND VASCULAR STRUCTURES: Heart normal in size. Normal vasculature. BONES: No acute findings. HARDWARE: None in the chest. OTHER: No other significant finding. IMPRESSION: NO ACUTE RADIOGRAPHIC FINDING IN THE CHEST. TECHNICAL DOCUMENTATION: JOB ID: [id number]
[2017-03-29] MEDS ORDERED: HYDROCODONE/ACETAMINOPHEN 5-325 MG TABLET PO ONE (13:17)
[2017-03-29] MEDS ORDERED: HYDROCODONE/ACETAMINOPHEN 5-325 MG 6 TAB/DSPK PO PRN (13:17)
[2017-03-29] MEDS ORDERED: DIPHENHYDRAMINE HCL 50 MG CAPSULE PO ONE (13:18)
--- NOTE | 2017-03-30 10:37 | EKG REPORT ---
SEVERITY:- ABNORMAL ECG - SINUS RHYTHM PROBABLE LEFT ATRIAL ABNORMALITY INFERIOR INFARCT, AGE INDETERMINATE : Confirmed by: Danilo Ashton 30-Mar-2017 10:36:55
== END 2017-03-29 13:40 | disposition home or self-care (01) ==
LOC: ER 11:06
DX: K08.89 Other specified disorders of teeth and supporting structures (principal); R07.9 Chest pain, unspecified; I10 Essential (primary) hypertension; I25.2 Old myocardial infarction; E11.9 Type 2 diabetes mellitus without complications; Z95.5 Presence of coronary angioplasty implant and graft
CPT/HCPCS: 93005; 99285; 36415; 82553; 82550; 83690; 85025; 80053; 84484; 71010; 93010; 64400; J3490

== ENCOUNTER 2017-06-12 16:34 | Emergency (ER) | payer OTHER ==
[2017-06-12 16:58] VITALS: BP 148/85
[2017-06-12] MEDS ORDERED: HYDROCODONE/ACETAMINOPHEN 5-325 MG TABLET PO ONE (18:18)
[2017-06-12] MEDS ORDERED: ONDANSETRON 4 MG TAB.RAPDIS PO ONE (18:18)
--- NOTE | 2017-06-12 18:21 | ER Document Report ---
ED Medical Screen (RME) - General Chief Complaint: Dizziness Stated Complaint: DIZZINESS Time Seen by Provider: 06/12/17 18:07 Notes: This 56-year-old male patient was sent from the cardiovascular center for evaluation of complaints of chest pain over the last few days. He also complains that he ran out of his blood thinner Plavix. He later corrected that to say he has 1 pill left and cannot get her prescription refilled. When I looked at his bottle he has 1 refill remaining between now and 07/24/2017, this was pointed out to him. He also complains of pain and swelling to his right face. Quick exam shows this is due to probable abscessed tooth in his right upper molar region. He has been seen many times for severe dental disease. He does need most of his teeth extracted. He is complaining that he does not get chest pain when he moves but gets it at rest and wants to know why. Sounds like he wants another cardiac catheterization here in the emergency room. He also complains of dizziness and nausea when he stands up. He states he is allergic to Vicodin, that someone put it in his chart. Review of the record shows he has received the equivalent of Vicodin in this emergency room or hospital multiple times over the past 5 years. I have greeted and performed a rapid initial assessment of this patient. A comprehensive ED assessment and evaluation of the patient, analysis of test results and completion of the medical decision making process will be conducted by additional ED providers. TRAVEL OUTSIDE OF THE [place] IN LAST 30 DAYS: No - Related Data Allergies/Adverse Reactions: acetaminophen [From Vicodin] Adverse Reaction (Verified 06/12/17 16:53) Hives hydrocodone [From Vicodin] Adverse Reaction (Verified 06/12/17 16:53) Hives Past Medical History - Social History Chew tobacco use (# tins/day): No Frequency of alcohol use: None Drug Abuse: None - Past Medical History Cardiac Medical History: Reports: Hx Heart Attack - 04/19, Hx Hypertension Pulmonary Medical History: Denies: Hx Tuberculosis Neurological Medical History: Reports: Hx Migraine Endocrine Medical History: Reports: Hx Diabetes Mellitus Type 2 Renal/ Medical History: Denies: Hx Peritoneal Dialysis GI Medical History: Reports: Hx Gastroesophageal Reflux Disease, Hx Hiatal Hernia Musculoskeltal Medical History: Reports Hx Arthritis Psychiatric Medical History: Reports: Hx Depression Past Surgical History: Reports: Hx Abdominal Surgery - hernia repair, Hx Cardiac Catheterization - Mar 2016, Hx Herniorrhaphy, Hx Inguinal Hernia. Denies: Hx Pacemaker - Immunizations Hx Diphtheria, Pertussis, Tetanus Vaccination: Yes Physical Exam - Vital signs Vitals: Temp Pulse Resp BP Pulse Ox 97.8 F 88 18 148/85 H 95 06/12/17 16:55 06/12/17 16:55 06/12/17 16:55 06/12/17 16:55 06/12/17 16:55 Course - Vital Signs Vital signs: Temp Pulse Resp BP Pulse Ox 97.8 F 88 18 148/85 H 95 06/12/17 16:55 06/12/17 16:55 06/12/17 16:55 06/12/17 16:55 06/12/17 16:55
--- NOTE | 2017-06-12 18:32 | EKG REPORT ---
SEVERITY:- ABNORMAL ECG - SINUS RHYTHM INFERIOR INFARCT, AGE INDETERMINATE : Confirmed by: Yogesh Doran MD 12-Jun-2017 18:32:01
[2017-06-12 18:44] LABS: ABSOLUTE BASOPHILS # (AUTO) 0.1 10^3/uL (0.0-0.2); ABSOLUTE LYMPHOCYTES (AUTO) 1.3 10^3/uL (0.5-4.7); ABSOLUTE MONOCYTES (AUTO) 0.5 10^3/uL (0.1-1.4); ABSOLUTE NEUT (AUTO) 10.5 10^3/uL (1.7-8.2); BASOPHILS % (AUTO) 0.6 % (0-2); EOSINOPHILS % (AUTO) 0.2 % (0-6); HEMATOCRIT 42.7 % (37.9-51.0); HEMOGLOBIN 14.4 g/dL (13.5-17.0); LYMPHOCYTES % (AUTO) 10.7 % (13-45); MEAN CORPUSCULAR HEMOGLOBIN 28.5 pg (27.0-33.4); MEAN CORPUSCULAR HGB CONC 33.8 g/dL (32.0-36.0); MEAN CORPUSCULAR VOLUME 84 fl (80-97); MONOCYTES % (AUTO) 4.1 % (3-13); PLATELET COUNT 403 10^3/uL (150-450); RED BLOOD COUNT 5.07 10^6/uL (4.35-5.55); RED CELL DISTRIBUTION WIDTH 13.5 % (11.5-14.0); SEGMENTED NEUTROPHILS % (AUTO) 84.4 % (42-78); TOTAL CELLS COUNTED % (AUTO) 100 %; WHITE BLOOD COUNT 12.5 10^3/uL (4.0-10.5)
[2017-06-12 19:11] LABS: ALANINE AMINOTRANSFERASE 28 U/L (21-72); ALBUMIN 4.3 g/dL (3.5-5.0); ALKALINE PHOSPHATASE 100 U/L (38-126); ANION GAP 13 (5-19); ASPARTATE AMINO TRANSFERASE 18 U/L (17-59); BILIRUBIN,DIRECT 0.4 mg/dL (0.0-0.4); BILIRUBIN,TOTAL 0.8 mg/dL (0.2-1.3); BLOOD UREA NITROGEN 19 mg/dL (7-20); CALCIUM 10.5 mg/dL (8.4-10.2); CARBON DIOXIDE 23 mmol/L (22-30); CHLORIDE 96 mmol/L (98-107); CREATINE KINASE 39 U/L (55-170); GLUCOSE 353 mg/dL (75-110); POTASSIUM 5.4 mmol/L (3.6-5.0); TOTAL PROTEIN 6.8 g/dL (6.3-8.2)
[2017-06-12] MEDS ORDERED: CLINDAMYCIN HCL 150 MG CAPSULE PO ONE (22:23)
--- NOTE | 2017-06-12 22:38 | ER Document Report ---
ED General - General Chief Complaint: Dizziness Stated Complaint: DIZZINESS Time Seen by Provider: 06/12/17 18:07 Notes: Patient is a 56-year-old male with multiple complaints. First complaint is of facial swelling and tooth pain. He has had a long history of dental caries. He has been seen earlier minimum times for dental infection. He says he has tried to call the free dental clinic but every time he calls they tell him to call the next week because they cannot fit them in this week. He denies fevers. No difficulty breathing or swallowing. No vomiting. Patient second complaint is of some dizziness. Patient says he has a history of recurrent dizziness ever since he had his LA approximately 1-2 years ago. Patient said he did have stents placed at that time. That was performed at [facility]. He says the dizziness is more when he stands and walks around. Better when he sits down. Earlier today he felt unwell. He was at Dr. Fernandez's office today and told them that he felt unwell and they called an ambulance and sent him to the ER. He says that his symptoms have resolved. He says the dizziness feels as if things are swaying back and forth. He says he is concerned he said the same symptoms when he had his previous stents placed; however, he also admits that he has had these symptoms continuously since his stents were placed. He did have a negative nuclear stress test 6-7 months ago in November. He says that when he had his heart attack previously his whole body walked up and could not move. He denies this happening today. If he said any chest pain today he says "I do not really have chest pain but sometimes he feels of my heart is beating in a rapid fashion whenever I feel the dizziness come on." No other complaints at this time. TRAVEL OUTSIDE OF THE [place] IN LAST 30 DAYS: No - Related Data Allergies/Adverse Reactions: No Known Allergies Allergy (Unverified 06/12/17 18:19) Past Medical History - Social History Smoking Status: Never Smoker Chew tobacco use (# tins/day): No Frequency of alcohol use: None Drug Abuse: None Family History: Arthritis, CAD, Hyperlipidemia, Hypertension, Malignancy Patient has suicidal ideation: No Patient has homicidal ideation: No - Past Medical History Cardiac Medical History: Reports: Hx Heart Attack - 04/19, Hx Hypertension Pulmonary Medical History: Denies: Hx Tuberculosis Neurological Medical History: Reports: Hx Migraine Endocrine Medical History: Reports: Hx Diabetes Mellitus Type 2 Renal/ Medical History: Denies: Hx Peritoneal Dialysis GI Medical History: Reports: Hx Gastroesophageal Reflux Disease, Hx Hiatal Hernia Musculoskeltal Medical History: Reports Hx Arthritis Psychiatric Medical History: Reports: Hx Depression Past Surgical History: Reports: Hx Abdominal Surgery - hernia repair, Hx Cardiac Catheterization - Mar 2016, Hx Herniorrhaphy, Hx Inguinal Hernia. Denies: Hx Pacemaker - Immunizations Hx Diphtheria, Pertussis, Tetanus Vaccination: Yes Review of Systems - Review of Systems Notes: My Normal Review Basic REVIEW OF SYSTEMS: CONSTITUTIONAL : Denies fever, chills, or sweats. Denies recent illness. EENT: Dental pain CARDIOVASCULAR: Denies chest pain. Palpitations. Dizziness. RESPIRATORY: Denies cough, cold, or chest congestion. Denies shortness of breath, difficulty breathing, or wheezing. GASTROINTESTINAL: Denies abdominal pain. Denies nausea, vomiting, or diarrhea. MUSCULOSKELETAL: Denies neck or back pain or joint pain or swelling. SKIN: Denies rash or skin lesions. NEUROLOGICAL: Denies altered mental status or loss of consciousness. Denies headache. Denies weakness or paralysis or loss of use of either side. Denies problems with gait or speech. Denies sensory or motor loss. ALL OTHER SYSTEMS REVIEWED AND NEGATIVE. Physical Exam - Vital signs Vitals: Temp Pulse Resp BP Pulse Ox 97.8 F 88 18 148/85 H 95 06/12/17 16:55 06/12/17 16:55 06/12/17 16:55 06/12/17 16:55 06/12/17 16:55 - Notes Notes: General Appearance: Well nourished, alert, cooperative, no acute distress, no obvious discomfort. Vitals: reviewed, See vital signs table. Head: no swelling or tenderness to the head Eyes: PERRL, EOMI, Conjuctiva clear Mouth: Patient has multiple dental caries. He has many teeth missing. Over his upper right premolar he does have gingival inflammation swelling consistent with a dental abscess. He does have some swelling over the right upper side of the face. No swelling over lower portion of face. No swelling below the mandible. Throat: No tonsillar inflammation, No airway obstruction, No lymphadenopathy Neck: Supple, no neck tenderness, No swelling of the neck. Lungs: No wheezing, No rales, No rhonci, No accessory muscle use, good air exchange bilaterally. Heart: Normal rate, Regular rythm, No murmur, no rub Abdomen: Normal BS, soft, No rigidity, No abdominal tenderness, No guarding, no rebound, no abdominal masses, no organomegaly Extremities: strength 5/5 in all extremities, good pulses in all extremities, no swelling or tenderness in the extremities, no edema. Skin: warm, dry, appropriate color, no rash Neuro: speech clear, oriented x 3, normal affect, responds appropriately to questions. Cranial nerves II through XII are intact. Distal sensation intact. Patient moves all extremities without difficulty. Course - Re-evaluation Re-evalutation: 06/12/17 23:06 I did review the patient's history and talked him at length. Told him I am concerned with his history of previous LA and stents. I informed him that even though he is a negative stress test that he does need close cardiology follow- up. I encouraged him to allow me to call [facility] access was previous stents were placed. Patient says he does not want that done. I then encouraged him to at least allow me to do repeat heart enzymes here. She says he cannot wait any longer as his ride is here to take him home. Informed him that if this is his heart he is very serious and could be life- threatening. He understands this. He says currently his dizziness is palpitations are gone. He says that he does not feel he gets to ER any longer and he wants to leave and follow up with Dr. Samuel in the morning. I did at least try to contact Dr. Fernandez. Ramu shazia is not on-call according to her's bin operator and told me that Dr. Garcia was covering. I did speak with Dr. Ashton. I informed Dr. Ashton the situation and asked him if there is a way that he could possibly in touch with her speak with Dr. Sameul so that I can ensure that the patient is able to get into [facility] in the morning. Dr. Ashton says that him and Dr. Fernandez do not have this kind of communication and he recommends that I signed the patient out AGAINST MEDICAL ADVICE and strongly encouraged him to call Dr. Fernandez's office in the morning. I will not actually make the patient signed the AGAINST MEDICAL ADVICE form as in the past I have noticed that patients seem to find this as a form of negative relationship between them in the hospital and therefore do not come back as quickly when they are sick. I find it beneficial to have the discussion with the patient about his risks and benefits and then to allow him to be discharged as he requests with encouraging him to return to ER anytime as we are happy to take care of him and treat him. I did do this with the patient informed him that I am concerned about him that I recommend that he states for repeat heart enzymes or at least last me called [facility] about potentially talk to them about the potential for heart catheterization. Patient does understand this but still requests to be discharged home but does agree to return to ER immediately if he has any further concerns and agrees to call Dr. Fernandez's office first thing in the morning. Also asked the patient if you allow me to try to drain the dental abscess as I feel that I could most likely at least do a needle aspiration or potentially make small incision near the gumline to drain this. Patient again refuses this and says he just wants antibiotics at this time. Patient again given option for further workup but denies. Patient will be discharged his request but strongly encouraged to return to ER anytime for further workup and treatment strongly encouraged follow-up with Dr. Fernandez in the morning. I also gave him the number to [facility] dental clinic as he requested different options for dental clinics. - Vital Signs Vital signs: Temp Pulse Resp BP Pulse Ox 97.8 F 88 18 148/85 H 95 06/12/17 16:55 06/12/17 16:55 06/12/17 16:55 06/12/17 16:55 06/12/17 16:55 - Laboratory Result Diagrams: 06/12/17 18:34 06/12/17 18:34 Laboratory results interpreted by me: 06/12/17 06/12/17 18:34 18:34 WBC 12.5 H Seg Neutrophils % 84.4 H Lymphocytes % 10.7 L Absolute Neutrophils 10.5 H Sodium 132.0 L Potassium 5.4 H Chloride 96 L Glucose 353 H Calcium 10.5 H Creatine Kinase 39 L - EKG Interpretation by Me Additional EKG results interpreted by me: 06/12/17 22:24 EKG is reviewed and interpreted by me. EKG shows normal sinus rhythm with a rate of [address] segment elevation or depression. No ischemic T-wave inversions. IA interval, QRS duration, QTc intervals are within normal range. Old EKG for comparison is from March 29, 2017. Discharge - Discharge Clinical Impression: Toothache, Dizziness, Infected dental caries Condition: Stable Disposition: HOME, SELF-CARE Instructions: Oral Narcotic Medication ([facility]) Additional Instructions: Please call Dr. Fernandez's office first thing in the am. As discussed with you , I feel you need further workup for your heart such as a repeat heart enzyme or speaking with [facility] about a heart cath. We respect your decision to leave based on your current situation with your ride, but you must return to [facility] ER immediately at any time for reevaluation and call Dr. Fernandez's office first thing in the am to see him. Please return to the ER immediately if you have chest pain, worsening dizziness, difficulty breathing, or feel unwell. I have prescribed an antibiotic to help with your dental infection. Please try to get in to see a dentist. Please call [facility] Clinic at to make an appointment. Please return to the ER immediately if you have chest pain , symptoms similar to your previous heart attack (Locking up), increasing facial swelling, fevers, difficulty breahting, or difficulty swallowing. Prescriptions: Clindamycin HCl 300 mg PO ASDIR #56 capsule Oxycodone HCl/Acetaminophen [Percocet 5-325 mg Tablet] 1 tab PO Q4H PRN #10 tablet PRN Reason:
== END 2017-06-12 22:51 | disposition home or self-care (01) ==
LOC: ER 16:34
DX: R42 Dizziness and giddiness (principal); K04.7 Periapical abscess without sinus; K02.9 Dental caries, unspecified; K08.89 Other specified disorders of teeth and supporting structures; I10 Essential (primary) hypertension; I25.2 Old myocardial infarction; E11.9 Type 2 diabetes mellitus without complications; Z95.5 Presence of coronary angioplasty implant and graft; Z82.49 Family history of ischemic heart disease and other diseases of the circulatory system
CPT/HCPCS: 93005; 99284; 36415; 82550; 85025; 80053; 84484; 93010; S0119

== ENCOUNTER → 2017-10-10 | Outpatient (CLI) | payer OTHER | LOC: LAB 13:14 | PROVIDERS: ATTEND Specialist | DX: I25.118 Atherosclerotic heart disease of native coronary artery with other forms of angina pectoris (principal); Z98.61 Coronary angioplasty status; R42 Dizziness and giddiness; Z53.8 Procedure and treatment not carried out for other reasons ==

== ENCOUNTER 2017-10-20 10:57 | Emergency (ER) | payer OTHER ==
[2017-10-20 11:03] VITALS: BP 131/95
[2017-10-20] MEDS ORDERED: CLINDAMYCIN HCL 150 MG CAPSULE PO ONE (11:34)
[2017-10-20] MEDS ORDERED: LIDOCAINE 2% VISCOUS SOLN 20 ML UDCUP PO ONE (11:34)
--- NOTE | 2017-10-20 11:40 | ER Document Report ---
ED Oral Problem - General Chief Complaint: Mouth Problem Stated Complaint: MOUTH PAIN Time Seen by Provider: 10/20/17 11:25 Mode of Arrival: Ambulatory Information source: Patient Notes: 57-year-old male presents to ED for complaint of dental pain to the upper and lower jaw practically the whole mouth. He states they have been bothering him more for the last week. He is unable to go to the dental clinic at this time. He states he has an appointment with his grain trimmer and to get some blood work drawn. His mouth has a lot of decay throughout the mouth with gingivitis. His respirations are regular and unlabored. He is speaking in full sentences in no acute distress at this time. TRAVEL OUTSIDE OF THE [place] IN LAST 30 DAYS: No - HPI Patient complains to provider of: Toothache Onset: Other - He states for up Onset: Gradual Quality of pain: Sharp Severity: Moderate Pain Level: 4 Associated symptoms: Toothache Worsened by: Cold Relieved by: Nothing Similar symptoms previously: Yes Recently seen / treated by doctor/dentist: Yes - Related Data Allergies/Adverse Reactions: No Known Allergies Allergy (Verified 10/20/17 10:58) Past Medical History - General Information source: Patient - Social History Smoking Status: Former Smoker Cigarette use (# per day): No Chew tobacco use (# tins/day): No Smoking Education Provided: No Frequency of alcohol use: None Drug Abuse: None Family History: Arthritis, CAD, Hyperlipidemia, Hypertension, Malignancy Patient has suicidal ideation: No Patient has homicidal ideation: No - Past Medical History Cardiac Medical History: Reports: Hx Heart Attack - 04/19, Hx Hypercholesterolemia, Hx Hypertension Pulmonary Medical History: Reports: None EENT Medical History: Reports: None Neurological Medical History: Reports: Hx Migraine Endocrine Medical History: Reports: Hx Diabetes Mellitus Type 2 Renal/ Medical History: Reports: None Malignancy Medical History: Reports None GI Medical History: Reports: Hx Gastroesophageal Reflux Disease, Hx Hiatal Hernia Musculoskeltal Medical History: Reports Hx Arthritis Skin Medical History: Reports None Psychiatric Medical History: Reports: Hx Depression Traumatic Medical History: Reports: None Past Surgical History: Reports: Hx Cardiac Catheterization - Mar 2016, Hx Inguinal Hernia - Immunizations Hx Diphtheria, Pertussis, Tetanus Vaccination: Yes Review of Systems - Review of Systems Constitutional: No symptoms reported EENT: Dental problem Cardiovascular: No symptoms reported Respiratory: No symptoms reported Gastrointestinal: No symptoms reported Genitourinary: No symptoms reported Male Genitourinary: No symptoms reported Musculoskeletal: No symptoms reported Skin: No symptoms reported Hematologic/Lymphatic: No symptoms reported Neurological/Psychological: No symptoms reported -: Yes All other systems reviewed and negative Physical Exam - Vital signs Vitals: Temp Pulse Resp BP Pulse Ox 98.9 F 106 H 16 131/95 H 97 10/20/17 11:01 10/20/17 11:01 10/20/17 11:01 10/20/17 11:01 10/20/17 11:01 Interpretation: Normal - General General appearance: Appears well, Alert - HEENT Head: Normocephalic, Atraumatic Eyes: Normal Pupils: PERRL Ears: Normal External canal: Normal Tympanic membrane: Normal Sinus: Normal Nasal: Normal Mouth/Lips: Caries Mucous membranes: Normal Teeth diagram: 1 - Multiple decayed teeth upper lower right and left jaw. Pharynx: Normal Neck: Anterior cervical chain - Respiratory Respiratory status: No respiratory distress Chest status: Nontender Breath sounds: Normal Chest palpation: Normal - Cardiovascular Rhythm: Regular Heart sounds: Normal auscultation Murmur: No - Abdominal Inspection: Normal Distension: No distension Bowel sounds: Normal Tenderness: Nontender Organomegaly: No organomegaly - Back Back: Normal, Nontender - Extremities General upper extremity: Normal inspection, Nontender, Normal color, Normal ROM , Normal temperature General lower extremity: Normal inspection, Nontender, Normal color, Normal ROM , Normal temperature, Normal weight bearing. No: Ross's sign - Neurological Neuro grossly intact: Yes Cognition: Normal Orientation: AAOx4 Lawrence Coma Scale Eye Opening: Spontaneous Lawrence Coma Scale Verbal: Oriented Vu Coma Scale Motor: Obeys Commands Vu Coma Scale Total: 15 Speech: Normal Motor strength normal: LUE, RUE, LLE, RLE Sensory: Normal - Psychological Associated symptoms: Normal affect, Normal mood - Skin Skin Temperature: Warm Skin Moisture: Dry Skin Color: Normal Course - Re-evaluation Re-evalutation: 10/20/17 11:38 After performing a Medical Screening Examination, I estimate there is LOW risk for a DEEP SPACE INFECTION (e.g., ENOC'S ANGINA OR RETROPHARYNGEAL ABSCESS), MENINGITIS, INTRACRANIAL HEMORRHAGE, or AIRWAY COMPROMISE, thus I consider the discharge disposition reasonable. Also, there is no evidence or peritonitis, sepsis, or toxicity. I have reevaluated this patient multiple times and no significant life threatening changes are noted. The patient and I have discussed the diagnosis and risks, and we agree with discharging home with close follow-up with the understanding that symptoms and presentations can change. We also discussed returning to the Emergency Department immediately if new or worsening symptoms occur. We have discussed the symptoms which are most concerning (e.g., changing or worsening pain, trouble swallowing or breathing, neck stiffness or fever) that necessitate immediate return. - Vital Signs Vital signs: Temp Pulse Resp BP Pulse Ox 98.9 F 106 H 16 131/95 H 97 10/20/17 11:01 10/20/17 11:01 10/20/17 11:01 10/20/17 11:01 10/20/17 11:01 Discharge - Discharge Clinical Impression: Toothache HTN (hypertension) Qualifiers: Hypertension type: unspecified Qualified Code(s): I10 - Essential (primary) hypertension Condition: Stable Disposition: HOME, SELF-CARE Additional Instructions: TOOTHACHE: Your pain is due to dental decay. The tooth must be repaired in order for you to feel better. You will, therefore, be referred to a dentist. We do not have dentists on the staff at [facility]. Severe swelling or drainage around a tooth usually means a dental abscess. This also requires evaluation and treatment by the dentist, but antibiotics may be prescribed while awaiting dental treatment. You should be rechecked immediately if you develop major swelling of the face, increasing pain, a lump in the jaw or gums, headache, difficulty swallowing, or fever. CLINDAMYCIN: You have been given a prescription for the antibiotic clindamycin. It is often prescribed for infections in the mouth, such as dental infections or abscesses, and for skin infections due to MRSA. It's important that you take all the medication, unless instructed otherwise by your physician. Failure to complete the entire course can result in relapse of your condition. Common side effects of antibiotics include nausea, intestinal cramping, or diarrhea. Women may develop vaginal yeast infections, and babies can get yeast (thrush) in the mouth following the use of antibiotics. Contact your physician if you develop significant side effects from this medication. Allergy to this antibiotic can result in hives, wheezing, faintness, or itching. If symptoms of allergy occur, stop the medication and call the doctor. FOLLOW-UP CARE: You have been referred for follow-up care to the dentists listed below. Call the dentists office for an appointment as you were instructed or within the next two days. If you experience worsening or a significant change in your symptoms, notify the physician immediately or return to the Emergency Department at any time for re-evaluation. [facility] [address] [place], [place] [facility] [address] [place] [address] [facility] [address] [facility] [address] [facility] ([facility]) [facility] [address] [facility] [email or web address] [address] [place] [address] Sunday- 8:00am to 5:00 pm Will see patients from other access [facility] [place]. Charges based on income and family size and accepts Medicare, Medicaid, and Insurances Will pull molars [facility] [id number] Hours of Operation 8:00 am - 4:30 pm weekdays The following dental offices accept Medicaid: [facility] Dr. Rocha Dr. Jones Dr. Victoria Dr. Aguilar Keaton Candelaria Lutsavage, and [facility] oral surgery Dr. Kirk ([place]) Dr. Lindsay ([place]) [facility] Drs. Miranda ([place]) Dr. Burnett ([place]) [facility] Dr. Pedro ([place]) Drs. Michelle and ([place]) Medicaid Care Line Prescriptions: Clindamycin HCl 300 mg PO Q6 #28 capsule Forms: Elevated Blood Pressure
== END 2017-10-20 11:50 | disposition home or self-care (01) ==
LOC: ER 10:57
DX: K02.9 Dental caries, unspecified (principal); K08.89 Other specified disorders of teeth and supporting structures; I10 Essential (primary) hypertension; K05.10 Chronic gingivitis, plaque induced; E11.9 Type 2 diabetes mellitus without complications; I25.2 Old myocardial infarction; Z87.891 Personal history of nicotine dependence
CPT/HCPCS: 99282; J3490

== ENCOUNTER → 2017-10-20 | Outpatient (CLI) | payer OTHER ==
[2017-10-20 12:45] LABS: ABSOLUTE BASOPHILS # (AUTO) 0.1 10^3/uL (0.0-0.2); ABSOLUTE EOSINOPHILS # (AUTO) 0.1 10^3/uL (0.0-0.6); ABSOLUTE LYMPHOCYTES (AUTO) 2.2 10^3/uL (0.5-4.7); ABSOLUTE MONOCYTES (AUTO) 0.4 10^3/uL (0.1-1.4); ABSOLUTE NEUT (AUTO) 5.1 10^3/uL (1.7-8.2); BASOPHILS % (AUTO) 1.1 % (0-2); EOSINOPHILS % (AUTO) 1.4 % (0-6); HEMATOCRIT 43.3 % (37.9-51.0); HEMOGLOBIN 14.7 g/dL (13.5-17.0); LYMPHOCYTES % (AUTO) 27.9 % (13-45); MEAN CORPUSCULAR HEMOGLOBIN 28.3 pg (27.0-33.4); MEAN CORPUSCULAR HGB CONC 33.9 g/dL (32.0-36.0); MEAN CORPUSCULAR VOLUME 83 fl (80-97); MONOCYTES % (AUTO) 5.6 % (3-13); PLATELET COUNT 323 10^3/uL (150-450); RED BLOOD COUNT 5.19 10^6/uL (4.35-5.55); RED CELL DISTRIBUTION WIDTH 13.4 % (11.5-14.0); TOTAL CELLS COUNTED % (AUTO) 100 %
[2017-10-20 12:47] LABS: INTERNATIONAL RATION (INR) 0.86; PROTHROMBIN TIME 12.2 SEC (11.4-15.4)
[2017-10-20 12:48] LABS: PARTIAL THROMBOPLASTIN TIME 22.8 SEC (23.5-35.8)
[2017-10-20 13:11] LABS: ANION GAP 10 (5-19); BLOOD UREA NITROGEN 24 mg/dL (7-20); CARBON DIOXIDE 27 mmol/L (22-30); CHLORIDE 100 mmol/L (98-107); GLUCOSE 272 mg/dL (75-110); POTASSIUM 5.1 mmol/L (3.6-5.0); SODIUM 137.4 mmol/L (137-145)
== END ==
LOC: LAB 12:12
PROVIDERS: ATTEND Specialist
DX: I25.118 Atherosclerotic heart disease of native coronary artery with other forms of angina pectoris (principal); Z98.61 Coronary angioplasty status; R42 Dizziness and giddiness; I25.2 Old myocardial infarction; E11.9 Type 2 diabetes mellitus without complications; I10 Essential (primary) hypertension; F41.9 Anxiety disorder, unspecified; E78.5 Hyperlipidemia, unspecified; Z79.899 Other long term (current) drug therapy
CPT/HCPCS: 36415; 80051; 82565; 82947; 83735; 84520; 85025; 85610; 85730

== ENCOUNTER 2017-10-24 | Emergency (ER) | payer OTHER ==
--- NOTE | 2017-10-24 00:10 | ER Document Report ---
ED General - General Stated Complaint: CHEST PAIN Time Seen by Provider: 10/24/17 00:09 Mode of Arrival: Medic Information source: Patient, Emergency Med Personnel Notes: 57-year-old gentleman with past medical history of coronary artery disease status post cardiac stenting in April 2016 at [facility], hypertension as well as diabetes who presented today for evaluation of exertional chest pain that started approximately 1 hour prior to arrival. Patient has associated belching with his symptoms. All of his symptoms are exertional. Chest pain described as pressure, localized to the middle the chest , no radiation, severity of symptoms a 6 out of 10. Patient denies any fevers, chills, cough, palpitations. Patient does have exertional dizziness as well. TRAVEL OUTSIDE OF THE [place] IN LAST 30 DAYS: No - Related Data Allergies/Adverse Reactions: No Known Allergies Allergy (Verified 10/20/17 10:58) Past Medical History - General Information source: Patient - Social History Smoking Status: Current Every Day Smoker Family History: Arthritis, CAD, Hyperlipidemia, Hypertension, Malignancy - Past Medical History Cardiac Medical History: Reports: Hx Heart Attack - 04/19, Hx Hypercholesterolemia, Hx Hypertension Pulmonary Medical History: Denies: Hx Tuberculosis Neurological Medical History: Reports: Hx Migraine Endocrine Medical History: Reports: Hx Diabetes Mellitus Type 2 Renal/ Medical History: Denies: Hx Peritoneal Dialysis GI Medical History: Reports: Hx Gastroesophageal Reflux Disease, Hx Hiatal Hernia Musculoskeltal Medical History: Reports Hx Arthritis Psychiatric Medical History: Reports: Hx Depression Past Surgical History: Reports: Hx Abdominal Surgery - hernia repair, Hx Cardiac Catheterization - Mar 2016, Hx Inguinal Hernia - Immunizations Hx Diphtheria, Pertussis, Tetanus Vaccination: Yes Review of Systems - Review of Systems Notes: REVIEW OF SYSTEMS: CONSTITUTIONAL: -fevers, -chills EENT: -eye pain, -difficulty swallowing, -nasal congestion CARDIOVASCULAR: + Chest pain, -syncope, + exertional dizziness RESPIRATORY: -cough, -SOB GASTROINTESTINAL: -abdominal pain, -nausea, -vomiting, -diarrhea, + belching GENITOURINARY: -dysuria, -hematuria MUSCULOSKELETAL: -back pain, -neck pain SKIN: -rash or skin lesions. HEMATOLOGIC: -easy bruising or bleeding. LYMPHATIC: -swollen, enlarged glands. NEUROLOGICAL: -altered mental status or loss of consciousness, -headache, - neurologic symptoms PSYCHIATRIC: -anxiety, -depression. ALL OTHER SYSTEMS REVIEWED AND NEGATIVE. Physical Exam - Vital signs Vitals: Resp BP Pulse Ox 12 165/93 H 99 10/24/17 00:06 10/24/17 00:06 10/24/17 00:06 - Notes Notes: Reviewed vital signs and nursing note as charted by RN. CONSTITUTIONAL: Alert and oriented and responds appropriately to questions HEAD: Normocephalic; atraumatic EYES: PERRL; Conjunctivae clear, sclerae non-icteric ENT: normal nose; no rhinorrhea; moist mucous membranes; pharynx without lesions noted NECK: Supple without meningismus; non-tender; no cervical lymphadenopathy, no masses CARD: Regular rate and rhythm; no murmurs, no clicks, no rubs, no gallops; symmetric distal pulses RESP: Normal chest excursion without splinting or tachypnea; breath sounds clear and equal bilaterally ABD/GI: Normal bowel sounds; non-distended; soft, no tenderness BACK: The back appears normal and is non-tender to palpation EXT: Normal ROM in all joints; non-tender to palpation; no cyanosis, no effusions, no edema SKIN: Normal color for age and race; warm; dry; good turgor; capillary refill < 2 seconds; no acute lesions noted NEURO: .Cranial nerves 3-12 intact. Motor strength 5/5 bilaterally. Sensation intact to touch bilaterally. No pronator drift. Finger to nose intact bilaterally PSYCH: The patient's mood and manner are appropriate. Grooming and personal hygiene are appropriate. Course - Re-evaluation Re-evalutation: 57-year-old with relevant cardiac history presented today with exertional chest pain Differential diagnoses includes ACS, angina, pneumonia, pleural effusion, GERD, muscular skeletal pain We will obtain EKG, troponin as well as basic lab work including CBC, BMP as well as coags Heart score of 4, moderate risk Continuous cardiac monitoring as well as pulse oximetry Reassess patient 10/24/17 01:22 First set of troponin undetectable EKG with Q waves in inferior leads consistent with his old inferior infarct Patient has exertional pain when he goes to the bathroom Discussed the case with [facility] for admission and further workup of chest pain as well as treatment of hyperglycemia We will give patient IV fluids 10/24/17 01:44 [facility], agree with admission to heart center Transfer patient to [facility] - Vital Signs Vital signs: Temp Pulse Resp BP Pulse Ox 98.5 F 82 18 150/82 H 97 10/24/17 00:15 10/24/17 00:15 10/24/17 01:01 10/24/17 01:01 10/24/17 01:01 - Laboratory Result Diagrams: 10/24/17 00:08 10/24/17 00:08 Laboratory results interpreted by me: 10/24/17 00:08 Sodium 135.7 L Glucose 341 H - Diagnostic Test Radiology reviewed: Image reviewed Radiology results interpreted by me: 10/24/17 02:01 No acute cardiopulmonary disease - EKG Interpretation by Me Additional EKG results interpreted by me: 10/24/17 00:54 EKG interpretation 12 AM Normal sinus rhythm, rate 82 UT 180, QRS narrow, QTC 352 Patient has Q waves in inferior leads, no ST depressions or elevations in any other leads No significant change compared to prior EKG performed on November 10, 2017 Discharge - Discharge Clinical Impression: Hyperglycemia Chest pain Qualifiers: Chest pain type: unspecified Qualified Code(s): R07.9 - Chest pain, unspecified CAD (coronary artery disease) Qualifiers: Coronary Disease-Associated Artery/Lesion type: due to calcified coronary lesion Qualified Code(s): I25.10 - Atherosclerotic heart disease of [place] coronary artery without angina pectoris; I25.84 - Coronary atherosclerosis due to calcified coronary lesion; I25.84 - Coronary atherosclerosis due to calcified coronary lesion; I25.84 - Coronary atherosclerosis due to calcified coronary lesion Condition: Stable Disposition: [facility]
[2017-10-24 00:21] LABS: ABSOLUTE BASOPHILS # (AUTO) 0.1 10^3/uL (0.0-0.2); ABSOLUTE EOSINOPHILS # (AUTO) 0.1 10^3/uL (0.0-0.6); ABSOLUTE LYMPHOCYTES (AUTO) 3.2 10^3/uL (0.5-4.7); ABSOLUTE MONOCYTES (AUTO) 0.6 10^3/uL (0.1-1.4); EOSINOPHILS % (AUTO) 1.5 % (0-6); HEMOGLOBIN 13.8 g/dL (13.5-17.0); LYMPHOCYTES % (AUTO) 40.3 % (13-45); MEAN CORPUSCULAR HEMOGLOBIN 28.6 pg (27.0-33.4); MEAN CORPUSCULAR HGB CONC 34.4 g/dL (32.0-36.0); MEAN CORPUSCULAR VOLUME 83 fl (80-97); MONOCYTES % (AUTO) 7.1 % (3-13); PLATELET COUNT 316 10^3/uL (150-450); RED BLOOD COUNT 4.81 10^6/uL (4.35-5.55); RED CELL DISTRIBUTION WIDTH 13.6 % (11.5-14.0); SEGMENTED NEUTROPHILS % (AUTO) 50.1 % (42-78); TOTAL CELLS COUNTED % (AUTO) 100 %; WHITE BLOOD COUNT 8.1 10^3/uL (4.0-10.5)
[2017-10-24 00:27] LABS: INTERNATIONAL RATION (INR) 0.79; PROTHROMBIN TIME 11.4 SEC (11.4-15.4)
[2017-10-24 00:33] LABS: ANION GAP 11 (5-19); BLOOD UREA NITROGEN 12 mg/dL (7-20); CALCIUM 9.3 mg/dL (8.4-10.2); CARBON DIOXIDE 22 mmol/L (22-30); CHLORIDE 103 mmol/L (98-107); GLUCOSE 341 mg/dL (75-110); POTASSIUM 4.4 mmol/L (3.6-5.0); SODIUM 135.7 mmol/L (137-145)
[2017-10-24] MEDS ORDERED: NORMAL SALINE 1000 ML 1,000 ML IV ONE (01:21)
--- NOTE | 2017-10-24 02:21 | RADIOLOGY REPORT (SQ) ---
EXAM DESCRIPTION: XR CHEST 2 VIEWS CLINICAL HISTORY: 57 years Male, chest pain COMPARISON: 10.26.17 FINDINGS: Adequate lung volume, clear parenchyma, normal cardiac silhouette, and intact bony thorax. IMPRESSION: No acute cardiopulmonary findings.
--- NOTE | 2017-10-24 07:21 | EKG REPORT ---
SEVERITY:- ABNORMAL ECG - SINUS RHYTHM INFERIOR INFARCT, AGE INDETERMINATE : Confirmed by: Yogesh Doran MD 24-Oct-2017 07:20:36
--- NOTE | 2017-10-24 08:22 | ER Document Report ---
Doctor's Note Notes: 10/24/17 08:22 This patient stable at this time for transfer. We will proceed as planned with transfer.
[2017-10-24 08:27] VITALS: BP 139/75
== END 2017-10-24 08:30 | disposition short-term general hospital (02) ==
LOC: ER
DX: R07.9 Chest pain, unspecified (principal); E11.65 Type 2 diabetes mellitus with hyperglycemia; I25.10 Atherosclerotic heart disease of native coronary artery without angina pectoris; I25.84 Coronary atherosclerosis due to calcified coronary lesion; R14.2 Eructation; R42 Dizziness and giddiness; F17.200 Nicotine dependence, unspecified, uncomplicated; I25.2 Old myocardial infarction; I10 Essential (primary) hypertension
CPT/HCPCS: 93005; 99285; 96360; 36415; 82962; 85025; 85610; 80048; 84484; 71046; 93010; J7030

== ENCOUNTER 2018-04-09 18:09 | Emergency (ER) | payer SELFPAY ==
--- NOTE | 2018-04-09 18:35 | ER Document Report ---
Addendum entered and electronically signed by KEREN FLORES PA-C 15:43: Procedures - Immobilization Right Arm Pre-Proc Neuro Vasc Exam: Normal Immobilizer type: Long arm posterior Performed by: PCT Post-Proc Neuro Vasc Exam: Normal Alignment checked and good: Yes Addendum entered and electronically signed by KEREN FLORES PA-C 15:40: Course - Re-evaluation Re-evalutation: 04/10/18 15:36 Upon arrival initial concern for cardiac etiology. EKG showed no evidence of STEMI. Troponins negative. Chest x-ray unremarkable for any pathology. On the monitor patient initially look like he went into a bigeminy then into V. tach, but upon further investigation with Dr. Larson in consultation with cardiology it appears it was merely artifact. Overall, EKG and lab studies were negative and patient insisted this was a trip and fall episode. Elbow showed proximal displaced ulnar fracture, patient was placed in a long splint, Dr. Clark was consulted. Patient relayed concerns about access to care and was set up with social work. - Vital Signs Vital signs: Temp Pulse Resp BP Pulse Ox 18 148/95 H 99 04/09/18 20:01 04/09/18 22:16 04/09/18 22:16 - Laboratory Result Diagrams: 04/09/18 20:18 04/09/18 18:30 Laboratory results interpreted by me: 04/09/18 04/09/18 18:30 20:18 WBC 11.2 H Hgb 13.1 L RDW 14.6 H Sodium 134.7 L Glucose 313 H AST 12 L ALT 14 L Total Protein 5.1 L Albumin 2.8 L Addendum entered and electronically signed by KEREN FLORES PA-C 15:35: Review of Systems - Review of Systems Constitutional: denies: Chills, Diaphoresis, Fever, Weakness EENT: No symptoms reported Cardiovascular: Dizziness, Lightheaded. denies: Chest pain, Palpitations, Dyspnea, Syncope Respiratory: denies: Short of breath Gastrointestinal: denies: Nausea, Vomiting Genitourinary: No symptoms reported Musculoskeletal: Joint pain - R elbow Neurological/Psychological: denies: Confusion, Weakness, Numbness, Tingling Addendum entered and electronically signed by KEREN FLORES PA-C 15:31: ED General - General Chief Complaint: Dizziness Stated Complaint: FALL/RIGHT ELBOW PAIN Time Seen by Provider: 04/09/18 18:33 TRAVEL OUTSIDE OF THE [place] IN LAST 30 DAYS: No - HPI Notes: This is a 57-year-old male with past medical history of coronary stent in 2015 and 3 vessel bypass in October 2017, hypertension, coronary artery disease, diabetes , who presents for chief complaint of dizziness and a trip and fall. Patient states he hit his head on the counter and fell to the ground. Denies any loss consciousness. Says everything started to turn white and in its periphery everything was black as he was falling down. Patient endorses dizziness, lightheadedness, denies fever chills, denies shortness of breath, denies chest pain, denies palpitations, denies nausea and vomiting. Patient endorses severe right elbow pain sustained after the fall. Patient endorses that he feels lightheaded all the time this is happened before, but insists that he tripped in his kitchen. - Related Data Allergies/Adverse Reactions: No Known Allergies Allergy (Verified 10/20/17 10:58) Original Note: ED General - General TRAVEL OUTSIDE OF THE [place] IN LAST 30 DAYS: No <KEREN FLORES - Last Filed: 04/10/18 15:42> <ELLE LARSON - Last Filed: 04/10/18 22:43> - General Chief Complaint: Dizziness Stated Complaint: FALL/RIGHT ELBOW PAIN Time Seen by Provider: 04/09/18 18:33 - Related Data Allergies/Adverse Reactions: No Known Allergies Allergy (Verified 10/20/17 10:58) Past Medical History - Social History Smoking Status: Unknown if Ever Smoked Family History: Arthritis, CAD, Hyperlipidemia, Hypertension, Malignancy - Past Medical History Cardiac Medical History: Reports: Hx Heart Attack - 04/19, Hx Hypercholesterolemia, Hx Hypertension Pulmonary Medical History: Denies: Hx Tuberculosis Neurological Medical History: Reports: Hx Migraine Endocrine Medical History: Reports: Hx Diabetes Mellitus Type 2 Renal/ Medical History: Denies: Hx Peritoneal Dialysis GI Medical History: Reports: Hx Gastroesophageal Reflux Disease, Hx Hiatal Hernia Musculoskeletal Medical History: Reports Hx Arthritis Psychiatric Medical History: Reports: Hx Depression Past Surgical History: Reports: Hx Abdominal Surgery - hernia repair, Hx Cardiac Catheterization - Mar 2016, Hx Inguinal Hernia - Immunizations Hx Diphtheria, Pertussis, Tetanus Vaccination: Yes <KEREN FLORES - Last Filed: 04/10/18 15:42> Physical Exam - General General appearance: Alert In distress: None - HEENT Eyes: Normal Conjunctiva: Normal Extraocular movements intact: Yes - Respiratory Respiratory status: No respiratory distress Breath sounds: Normal - Cardiovascular Rhythm: Regular Heart sounds: Normal auscultation, S1 appreciated, S2 appreciated Murmur: No - Abdominal Inspection: Normal Distension: No distension - Extremities Elbow: Tender, Deformity - R olecranon Wrist: Normal - Neurological Neuro grossly intact: Yes - Skin Skin Temperature: Warm Skin Moisture: Dry Skin Color: Normal <KEREN FLORES - Last Filed: 04/10/18 15:42> - Vital signs Vitals: Resp Pulse Ox 13 98 04/09/18 18:25 04/09/18 18:25 Course - Laboratory Result Diagrams: 04/09/18 20:18 04/09/18 18:30 <KEREN FLORES - Last Filed: 04/10/18 15:42> - Laboratory Result Diagrams: 04/09/18 20:18 04/09/18 18:30 <ELLE LARSON - Last Filed: 04/10/18 22:43> - Re-evaluation Re-evalutation: 04/09/18 22:[address] Larson after what appeared to be an abnormal heart rhythm on monitor. Appear to be artifact. CT head ordered and normal, no acute process. EKG normal, troponin negative. X-ray of right elbow showed displaced olecranon fracture. Patient placed in a long splint. (KEREN FLORES) 04/10/18 22:41 Patient coming in after a trip and fall. I did evaluate the patient with the mid-level at bedside. The little concern for possible arrhythmia on the heart monitor however Dr. Ashton at bedside confirms this is artifact from the patient' s movement no concern for any underlying arrhythmia. Patient otherwise remained stable during his ER visit here. Patient does have a fracture of the olecranon and discussed the treatment care with Dr. Torres will have the patient followed up and splinted per Dr. Torres's instructions. Because the patient's lack of resources we did consult with our social work team. Patient at the time of discharge to become overly concerned about his teeth. Recommend patient follow-up with a dentist patient requesting clindamycin. Explained to the patient at this time clindamycin was not indicated for treatment of his teeth he will need to follow-up with the dentist explained to the patient that abuse issues that antibiotics can result in nausea vomiting diarrhea and C. difficile infections and further complications. (ELLE LARSON) - Vital Signs Vital signs: Temp Pulse Resp BP Pulse Ox 18 148/95 H 99 04/09/18 20:01 04/09/18 22:16 04/09/18 22:16 - Laboratory Laboratory results interpreted by me: 04/09/18 04/09/18 18:30 20:18 WBC 11.2 H Hgb 13.1 L RDW 14.6 H Sodium 134.7 L Glucose 313 H AST 12 L ALT 14 L Total Protein 5.1 L Albumin 2.8 L Discharge <KEREN FLORES - Last Filed: 04/10/18 15:42> <ELLE LARSON - Last Filed: 04/10/18 22:43> - Discharge Clinical Impression: Light-headed feeling, Dental caries Fracture of right proximal ulna Qualifiers: Encounter type: initial encounter Fracture type: closed Fracture morphology: unspecified fracture morphology Qualified Code(s): S52.001A - Unspecified fracture of upper end of right ulna, initial encounter for closed fracture Condition: Good Disposition: HOME, SELF-CARE Instructions: Fracture ([facility]), Near Syncopal Episode ([facility]), Oral Narcotic Medication ([facility]) Additional Instructions: Your evaluation today shows a fracture of the right elbow. We will place you in a sling and a splint. Please keep the splint in place until he follow-up with orthopedics. Take pain medication as prescribed. Return to the ER for any worsening of your symptoms. Laboratory studies today do not show any acute pathology. Return to the ER if symptoms worsen. Prescriptions: Hydrocodone Bit/Acetaminophen [Hydrocodon-Acetaminophen 5-325] 1 each PO Q6 PRN #30 tablet PRN Reason: For Pain Ondansetron [Zofran Odt] 4 mg PO Q6 PRN #30 tab.rapdis PRN Reason: For Nausea/Vomiting Forms: Return to Work Referrals: YUKO TORRES, [ACTIVE STAFF] - Follow up as needed (Call tomorrow to make an appointment)
[2018-04-09 19:50] LABS: ALANINE AMINOTRANSFERASE 14 U/L (21-72); ALBUMIN 2.8 g/dL (3.5-5.0); ALKALINE PHOSPHATASE 83 U/L (38-126); ANION GAP 13 (5-19); ASPARTATE AMINO TRANSFERASE 12 U/L (17-59); BILIRUBIN,DIRECT 0.2 mg/dL (0.0-0.4); BILIRUBIN,TOTAL 0.4 mg/dL (0.2-1.3); BLOOD UREA NITROGEN 16 mg/dL (7-20); CARBON DIOXIDE 23 mmol/L (22-30); CHLORIDE 99 mmol/L (98-107); CREATINE KINASE 87 U/L (55-170); GLUCOSE 313 mg/dL (75-110); LIPASE 141.2 U/L (23-300); POTASSIUM 4.3 mmol/L (3.6-5.0); SODIUM 134.7 mmol/L (137-145); TOTAL PROTEIN 5.1 g/dL (6.3-8.2)
--- NOTE | 2018-04-09 20:08 | RADIOLOGY REPORT (SQ) ---
EXAM DESCRIPTION: CT HEAD WITHOUT COMPLETED DATE/TIME: 04/09/2018 7:41 pm REASON FOR STUDY: fall and struck head COMPARISON: 09/26/2015 TECHNIQUE: Axial images acquired through the brain without intravenous contrast. Images reviewed wi th bone, brain and subdural windows. Additional sagittal and coronal reconstructions were generated. Images stored on PACS. All CT scanners at this facility use dose modulation, iterative reconstruction, and/or weight based d osing when appropriate to reduce radiation dose to as low as reasonably achievable (ALARA). [facility]: Dose Right [facility]: CareDose [facility]: Dose Right [facility]: Teradose 4D [facility]: Smart VividCortex RADIATION DOSE: CT Rad equipment meets quality standard of care and radiation dose reduction techniq ues were employed. CTDIvol: 53.2 mGy. DLP: 1017 mGy-cm. mGy. LIMITATIONS: None. FINDINGS: VENTRICLES: Normal size and contour. CEREBRUM: No masses. No hemorrhage. No midline shift. No evidence for acute infarction. Normal gra y/white matter differentiation. No areas of low density in the white matter. CEREBELLUM: No masses. No hemorrhage. No alteration of density. No evidence for acute infarction. EXTRAAXIAL SPACES: No fluid collections. No masses. ORBITS AND GLOBE: No intra- or extraconal masses. Normal contour of globe without masses. CALVARIUM: No fracture. PARANASAL SINUSES: No fluid or mucosal thickening. SOFT TISSUES: No mass or hematoma. OTHER: No other significant finding. IMPRESSION: NORMAL BRAIN CT WITHOUT CONTRAST. EVIDENCE OF ACUTE STROKE: NO. COMMENT: Quality ID # [id number]: Final reports with documentation of one or more dose reduction techniques (e.g., Automated exposure control, adjustment of the mA and/or kV according to patient size, use of iterative reconstruction technique) TECHNICAL DOCUMENTATION: JOB ID: [id number] [employer]- All Rights Reserved Reading location - IP/workstation name: [email or web address]
--- NOTE | 2018-04-09 20:09 | RADIOLOGY REPORT (SQ) ---
EXAM DESCRIPTION: CHEST SINGLE VIEW COMPLETED DATE/TIME: 04/09/2018 7:48 pm REASON FOR STUDY: syncope COMPARISON: 10/24/2017 EXAM PARAMETERS: NUMBER OF VIEWS: One view. TECHNIQUE: Single frontal radiographic view of the chest acquired. RADIATION DOSE: NA LIMITATIONS: None. FINDINGS: LUNGS AND PLEURA: No opacities, masses or pneumothorax. No pleural effusion. MEDIASTINUM AND HILAR STRUCTURES: No masses. Contour normal. HEART AND VASCULAR STRUCTURES: Heart normal in size. Normal vasculature. BONES: No acute findings. HARDWARE: Sternotomy wires. OTHER: No other significant finding. IMPRESSION: NO ACUTE RADIOGRAPHIC FINDING IN THE CHEST. TECHNICAL DOCUMENTATION: JOB ID: [id number] [employer]- All Rights Reserved Reading location - IP/workstation name: [email or web address]
--- NOTE | 2018-04-09 20:10 | RADIOLOGY REPORT (SQ) ---
EXAM DESCRIPTION: ELBOW RIGHT OVER 2 VIEWS COMPLETED DATE/TIME: 04/09/2018 7:48 pm REASON FOR STUDY: fall COMPARISON: None. NUMBER OF VIEWS: Four views. TECHNIQUE: AP, lateral, and both oblique radiographic images acquired of the right elbow. LIMITATIONS: None. FINDINGS: MINERALIZATION: Normal. BONES: Transverse fracture of the ulna at the joint. 10 to 12 mm displacement. JOINT: No effusion. SOFT TISSUES: No soft tissue swelling. No foreign body. OTHER: No other significant finding. IMPRESSION: Fracture of the proximal ulna. TECHNICAL DOCUMENTATION: JOB ID: [id number] [employer]- All Rights Reserved Reading location - IP/workstation name: [email or web address]
[2018-04-09 20:30] LABS: ABSOLUTE BASOPHILS # (AUTO) 0.1 10^3/uL (0.0-0.2); ABSOLUTE EOSINOPHILS # (AUTO) 0.1 10^3/uL (0.0-0.6); ABSOLUTE LYMPHOCYTES (AUTO) 2.5 10^3/uL (0.5-4.7); ABSOLUTE MONOCYTES (AUTO) 0.7 10^3/uL (0.1-1.4); ABSOLUTE NEUT (AUTO) 7.8 10^3/uL (1.7-8.2); BASOPHILS % (AUTO) 0.7 % (0-2); EOSINOPHILS % (AUTO) 0.9 % (0-6); HEMATOCRIT 38.6 % (37.9-51.0); HEMOGLOBIN 13.1 g/dL (13.5-17.0); MEAN CORPUSCULAR HEMOGLOBIN 27.9 pg (27.0-33.4); MEAN CORPUSCULAR HGB CONC 33.8 g/dL (32.0-36.0); MEAN CORPUSCULAR VOLUME 83 fl (80-97); MONOCYTES % (AUTO) 6.4 % (3-13); PLATELET COUNT 369 10^3/uL (150-450); RED BLOOD COUNT 4.68 10^6/uL (4.35-5.55); RED CELL DISTRIBUTION WIDTH 14.6 % (11.5-14.0); TOTAL CELLS COUNTED % (AUTO) 100 %; WHITE BLOOD COUNT 11.2 10^3/uL (4.0-10.5)
[2018-04-09 20:54] LABS: CREATINE KINASE MB 1.21 ng/mL (<4.55); TROPONIN I < 0.012 ng/mL
[2018-04-09] MEDS ORDERED: HYDROCODONE/ACETAMINOPHEN 5-325 MG TABLET PO ONE (21:57)
[2018-04-09] MEDS ORDERED: HYDROCODONE/ACETAMINOPHEN 5-325 MG (6 TAB/ER DISP) PO PRN (21:57)
[2018-04-09 22:52] VITALS: BP 148/95
--- NOTE | 2018-04-10 07:49 | EKG REPORT ---
SEVERITY:- ABNORMAL ECG - SINUS RHYTHM INFERIOR INFARCT, OLD : Confirmed by: Yogesh Doran MD 10-Apr-2018 07:49:07
== END 2018-04-09 22:35 | disposition home or self-care (01) ==
LOC: ER 18:09
PROC: 2W38X1Z Immobilization of Right Upper Extremity using Splint (ICD-10-PCS; principal; 2018-04-09)
DX: S52.001A Unspecified fracture of upper end of right ulna, initial encounter for closed fracture (principal); K02.9 Dental caries, unspecified; R42 Dizziness and giddiness; M25.521 Pain in right elbow; W01.10XA Fall on same level from slipping, tripping and stumbling with subsequent striking against unspecified object, initial encounter; I25.2 Old myocardial infarction; I10 Essential (primary) hypertension; E11.9 Type 2 diabetes mellitus without complications
CPT/HCPCS: 36415; 70450; 71045; 80053; 82550; 82553; 83690; 83735; 84484; 85025; 93005; 93010; 99285

== ENCOUNTER → 2018-09-17 | Outpatient (CLI) | payer OTHER ==
[2018-09-17 14:28] LABS: ANION GAP 10 (5-19); BLOOD UREA NITROGEN 24 mg/dL (7-20); CARBON DIOXIDE 23 mmol/L (22-30); CHLORIDE 101 mmol/L (98-107); GLUCOSE 374 mg/dL (75-110); POTASSIUM 5.1 mmol/L (3.6-5.0); SODIUM 134.1 mmol/L (137-145)
== END ==
LOC: OD 12:55
DX: R25.2 Cramp and spasm (principal)
CPT/HCPCS: 36415; 80048; 83735

== ENCOUNTER 2018-11-04 04:29 | Emergency (ER) | payer SELFPAY ==
[2018-11-04] MEDS ORDERED: ASPIRIN 81 MG TABLET, CHEWABLE PO ONE (04:31)
[2018-11-04 05:19] LABS: ABSOLUTE BASOPHILS # (AUTO) 0.1 10^3/uL (0.0-0.2); ABSOLUTE EOSINOPHILS # (AUTO) 0.1 10^3/uL (0.0-0.6); ABSOLUTE LYMPHOCYTES (AUTO) 2.2 10^3/uL (0.5-4.7); ABSOLUTE MONOCYTES (AUTO) 0.7 10^3/uL (0.1-1.4); ABSOLUTE NEUT (AUTO) 5.7 10^3/uL (1.7-8.2); BASOPHILS % (AUTO) 0.8 % (0-2); EOSINOPHILS % (AUTO) 1.5 % (0-6); HEMATOCRIT 41.6 % (37.9-51.0); LYMPHOCYTES % (AUTO) 25.2 % (13-45); MEAN CORPUSCULAR HEMOGLOBIN 28.4 pg (27.0-33.4); MEAN CORPUSCULAR HGB CONC 33.8 g/dL (32.0-36.0); MEAN CORPUSCULAR VOLUME 84 fl (80-97); MONOCYTES % (AUTO) 7.7 % (3-13); PLATELET COUNT 399 10^3/uL (150-450); RED BLOOD COUNT 4.95 10^6/uL (4.35-5.55); RED CELL DISTRIBUTION WIDTH 13.4 % (11.5-14.0); SEGMENTED NEUTROPHILS % (AUTO) 64.8 % (42-78); TOTAL CELLS COUNTED % (AUTO) 100 %; WHITE BLOOD COUNT 8.7 10^3/uL (4.0-10.5)
[2018-11-04 05:26] LABS: INTERNATIONAL RATION (INR) 0.85
[2018-11-04 05:46] LABS: ALANINE AMINOTRANSFERASE 16 U/L (21-72); ALBUMIN 3.2 g/dL (3.5-5.0); ALKALINE PHOSPHATASE 89 U/L (38-126); ANION GAP 8 (5-19); ASPARTATE AMINO TRANSFERASE 32 U/L (17-59); BILIRUBIN,DIRECT 0.3 mg/dL (0.0-0.4); BILIRUBIN,TOTAL 0.4 mg/dL (0.2-1.3); BLOOD UREA NITROGEN 22 mg/dL (7-20); CALCIUM 8.9 mg/dL (8.4-10.2); CARBON DIOXIDE 28 mmol/L (22-30); CHLORIDE 102 mmol/L (98-107); CREATINE KINASE 48 U/L (55-170); GLUCOSE 391 mg/dL (75-110); POTASSIUM 4.2 mmol/L (3.6-5.0); SODIUM 138.3 mmol/L (137-145); TOTAL PROTEIN 5.7 g/dL (6.3-8.2)
--- NOTE | 2018-11-04 05:52 | RADIOLOGY REPORT (SQ) ---
EXAM DESCRIPTION: XR CHEST 1 VIEW COMPLETED DATE/TME: 11/04/2018 04:32 CLINICAL HISTORY: 58 years, Male, chest pain Comparison: None FINDINGS: No focal lung consolidation. No pleural effusion. No pneumothorax. Cardiac and mediastinal silhouette is unremarkable. Patient's had a CABG. No acute osseous abnormality. Soft tissues are unremarkable. IMPRESSION: No acute findings. No focal lung consolidation.
[2018-11-04 05:55] LABS: CREATINE KINASE MB 0.67 ng/mL (<4.55)
[2018-11-04 05:59] LABS: TROPONIN I < 0.012 ng/mL
--- NOTE | 2018-11-04 06:32 | ER Document Report ---
ED Cardiac - General Chief Complaint: Chest Pain Stated Complaint: CHEST PAIN Time Seen by Provider: 11/04/18 06:03 Primary Care Provider: MICHAEL VARELA MD [Primary Care Provider] - Follow up as needed Notes: 58-year-old male emergency department chief complaint of dizziness, belching. Patient states that he has long-standing heart history. Has had open heart surgery. States that sometimes he gets agitated and will get chest pain. Had the same thing happened today after an argument with his brother. States that he felt very dizzy and was about to pass out and was afraid he was can have a heart attack and started belching again. Has gotten better since he is come to the emergency department. TRAVEL OUTSIDE OF THE [place] IN LAST 30 DAYS: No - HPI Patient complains to provider of: Chest tightness Was the onset of pain: Gradual Is the pain a: Chronic problem Quality of pain: Intermittent - Related Data Allergies/Adverse Reactions: No Known Allergies Allergy (Verified 11/04/18 08:32) Past Medical History - General Information source: Patient - Social History Smoking Status: Smoker,Current Status Unk Frequency of alcohol use: None Drug Abuse: None Lives with: Family Family History: Arthritis, CAD, Hyperlipidemia, Hypertension, Malignancy - Past Medical History Cardiac Medical History: Reports: Hx Heart Attack - 04/19, Hx Hypercholesterolemia, Hx Hypertension Pulmonary Medical History: Denies: Hx Tuberculosis Neurological Medical History: Reports: Hx Migraine Endocrine Medical History: Reports: Hx Diabetes Mellitus Type 2 Renal/ Medical History: Denies: Hx Peritoneal Dialysis GI Medical History: Reports: Hx Gastroesophageal Reflux Disease, Hx Hiatal Hernia Musculoskeletal Medical History: Reports Hx Arthritis Psychiatric Medical History: Reports: Hx Depression Past Surgical History: Reports: Hx Abdominal Surgery - hernia repair, Hx Cardiac Catheterization - Mar 2016, Hx Inguinal Hernia - Immunizations Hx Diphtheria, Pertussis, Tetanus Vaccination: Yes Review of Systems - Review of Systems Notes: Constitutional: denies: Chills, Diaphoresis, Fever, Malaise, Weakness EENT: denies: Eye discharge, Blurred vision, Tearing, Double vision, Nose c ongestion, Nose discharge, Throat swelling, Mouth pain Cardiovascular: denies: Palpitations, Heart racing, Orthopnea, Dyspnea, Chest pain Respiratory: denies: Cough, Hurts to breathe, Wheezing, Shortness of breath Gastrointestinal: denies: Abdominal pain, Diarrhea, Nausea, Vomiting, Black stools, bright red blood in stool. He does complain of excessive belching Genitourinary: denies: Burning, Dysuria, Discharge, Frequency, Flank pain, Hematuria Musculoskeletal: denies: Joint pain, Joint swelling, Muscle pain, Muscle stiffness, back pain Hematologic/Lymphatic: denies: Anemia, Easy bleeding, Easy bruising, Blood clots Neurological/Psychological: denies: Confusion, Dementia, Depression, Loss of consciousness he does complain of dizziness. Skin: No lesions, no masses, no skin breakdown, no abscesses Physical Exam - Vital signs Vitals: Pulse Ox 95 11/04/18 04:32 Interpretation: Normal - Notes Notes: Moderately anxious individual - General General appearance: Appears well, Alert - HEENT Head: Normocephalic, Atraumatic Eyes: Normal Pupils: PERRL - Respiratory Respiratory status: No respiratory distress Chest status: Nontender Breath sounds: Normal Chest palpation: Normal - Cardiovascular Rhythm: Regular Heart sounds: Normal auscultation Murmur: No - Abdominal Inspection: Normal Distension: No distension Bowel sounds: Normal Tenderness: Nontender Organomegaly: No organomegaly - Back Back: Normal, Nontender - Extremities General upper extremity: Normal inspection, Nontender, Normal color, Normal ROM, Normal temperature General lower extremity: Normal inspection, Nontender, Normal color, Normal ROM, Normal temperature, Normal weight bearing. No: Ross's sign - Neurological Neuro grossly intact: Yes Cognition: Normal Orientation: AAOx4 [place] Coma Scale Eye Opening: Spontaneous [place] Coma Scale Verbal: Oriented Vu Coma Scale Motor: Obeys Commands [place] Coma Scale Total: 15 Speech: Normal Motor strength normal: LUE, RUE, LLE, RLE Sensory: Normal - Psychological Associated symptoms: Normal affect, Normal mood - Skin Skin Temperature: Warm Skin Moisture: Dry Skin Color: Normal Course - Re-evaluation Re-evalutation: 11/04/18 09:13 Laboratory 11/04/18 11/04/18 11/04/18 04:47 04:47 04:47 WBC 8.7 RBC 4.95 Hgb 14.0 Hct 41.6 MCV 84 MCH 28.4 MCHC 33.8 RDW 13.4 Plt Count 399 Seg Neutrophils % 64.8 Lymphocytes % 25.2 Monocytes % 7.7 Eosinophils % 1.5 Basophils % 0.8 Absolute Neutrophils 5.7 Absolute Lymphocytes 2.2 Absolute Monocytes 0.7 Absolute Eosinophils 0.1 Absolute Basophils 0.1 PT 12.0 INR 0.85 Sodium 138.3 Potassium 4.2 Chloride 102 Carbon Dioxide 28 Anion Gap 8 BUN 22 H Creatinine 1.15 Est GFR ( Amer) > 60 Est GFR (Non-Af Amer) > 60 Glucose 391 H Calcium 8.9 Total Bilirubin 0.4 Direct Bilirubin 0.3 Neonat Total Bilirubin Not Reportable Neonat Direct Bilirubin Not Reportable Neonat Indirect Bili Not Reportable AST 32 ALT 16 L Alkaline Phosphatase 89 Creatine Kinase 48 L CK-MB (CK-2) Troponin I Total Protein 5.7 L Albumin 3.2 L 11/04/18 11/04/18 04:47 08:05 WBC RBC Hgb Hct MCV MCH MCHC RDW Plt Count Seg Neutrophils % Lymphocytes % Monocytes % Eosinophils % Basophils % Absolute Neutrophils Absolute Lymphocytes Absolute Monocytes Absolute Eosinophils Absolute Basophils PT INR Sodium Potassium Chloride Carbon Dioxide Anion Gap BUN Creatinine Est GFR ( Amer) Est GFR (Non-Af Amer) Glucose Calcium Total Bilirubin Direct Bilirubin Neonat Total Bilirubin Neonat Direct Bilirubin Neonat Indirect Bili AST ALT Alkaline Phosphatase Creatine Kinase CK-MB (CK-2) 0.67 Troponin I < 0.012 < 0.012 Total Protein Albumin Chest X-Ray 11/04/18 04:32 IMPRESSION: No acute findings. No focal lung consolidation. Patient does not have any active chest pain. His EKG is unchanged from prior. 2 cardiac troponins negative. Has outpatient cardiology follow-up. At this time unlikely he is having a major cardiac event. He does score quite high on the heart score however he reports these are dry recurring symptoms that he has had frequently. Uncertain why he is belching. This does not seem to coincide with any type of significant cardiac pathology however I am cognizant of the fact that belching has been associated with angina. This could be his potential anginal equivalent in a patient that has some chronic angina and chest pain. At this time more likely patient can be safely discharged. 11/04/18 11:19 Repeat EKG performed. Third troponin ordered. No significant changes on EKG. 11/04/18 12:08 Patient has been kept here for hours. He still is concerned about his heart. I have expressed to him that he needs to follow-up with his clip wrapper. He has 3 sets of cardiac troponin and which reveal an undetected and of troponin I which means he is not actively having a heart attack. On further evaluation and questioning it appears that most of his symptoms are related to his head movement. He he is describing pretty significant vertigo and nystagmus. This is reproducible. I will place him on a meclizine taper and encouraged him to follow-up with his clip wrapper as soon as possible. Return for worsening symptoms or concerns. - Vital Signs Vital signs: Temp Pulse Resp BP Pulse Ox 98.6 F 96 12 123/74 94 11/04/18 04:36 11/04/18 04:36 11/04/18 12:01 11/04/18 12:01 11/04/18 12:01 - Laboratory Result Diagrams: 11/04/18 04:47 11/04/18 04:47 Laboratory results interpreted by me: 11/04/18 04:47 BUN 22 H Glucose 391 H ALT 16 L Creatine Kinase 48 L Total Protein 5.7 L Albumin 3.2 L - EKG Interpretation by Me EKG shows normal: Sinus rhythm, [place], Intervals, QRS Complexes, ST-T Waves When compared to previous EKG there are: No significant change Discharge - Discharge Clinical Impression: Vertiginous syndrome and labyrinthine disorder Condition: Good Disposition: HOME, SELF-CARE Instructions: Vertigo ([facility]) Additional Instructions: You have been observed in the emergency department for quite some time now. All of the cardiac labs performed today are normal. EKGs did not show you are having a heart attack. We are recommending that you try the medicine as prescribed to see if this will help some of your nausea. Please make an appointment with your clip wrapper. Follow-up with your primary care doctors. Return for worsening symptoms or concerns. Prescriptions: Meclizine HCl [Antivert 25 mg Tablet] 25 mg PO TID 7 Days #30 tablet Referrals: MICHAEL VARELA MD [Primary Care Provider] - Follow up as needed
--- NOTE | 2018-11-04 07:32 | EKG REPORT ---
SEVERITY:- ABNORMAL ECG - SINUS RHYTHM PROBABLE LEFT ATRIAL ABNORMALITY INFERIOR INFARCT, OLD : Confirmed by: Yogesh Doran MD 04-Nov-2018 07:32:01
[2018-11-04 13:11] VITALS: BP 132/74
--- NOTE | 2018-11-04 13:17 | EKG REPORT ---
SEVERITY:- ABNORMAL ECG - SINUS RHYTHM PROBABLE LEFT ATRIAL ABNORMALITY INFERIOR INFARCT, OLD LATERAL LEADS ARE ALSO INVOLVED : Confirmed by: Yogesh Doran MD 04-Nov-2018 13:16:32
== END 2018-11-04 13:11 | disposition home or self-care (01) ==
LOC: ER 04:29
DX: R07.9 Chest pain, unspecified (principal); H81.90 Unspecified disorder of vestibular function, unspecified ear; H83.90 Unspecified disease of inner ear, unspecified ear; K21.9 Gastro-esophageal reflux disease without esophagitis; M19.90 Unspecified osteoarthritis, unspecified site; F32.9 Major depressive disorder, single episode, unspecified; E78.00 Pure hypercholesterolemia, unspecified; F17.200 Nicotine dependence, unspecified, uncomplicated
CPT/HCPCS: 36415; 71045; 80053; 82550; 82553; 84484; 85025; 85610; 93005; 93010; 99285

== ENCOUNTER 2018-11-19 15:34 | Emergency (ER) | payer SELFPAY ==
[2018-11-19] MEDS ORDERED: ASPIRIN 81 MG TABLET, CHEWABLE PO ONE (15:38)
[2018-11-19 16:05] LABS: ABSOLUTE BASOPHILS # (AUTO) 0.1 10^3/uL (0.0-0.2); ABSOLUTE EOSINOPHILS # (AUTO) 0.1 10^3/uL (0.0-0.6); ABSOLUTE LYMPHOCYTES (AUTO) 2.7 10^3/uL (0.5-4.7); ABSOLUTE MONOCYTES (AUTO) 0.8 10^3/uL (0.1-1.4); ABSOLUTE NEUT (AUTO) 6.1 10^3/uL (1.7-8.2); EOSINOPHILS % (AUTO) 0.7 % (0-6); HEMATOCRIT 42.3 % (37.9-51.0); HEMOGLOBIN 14.7 g/dL (13.5-17.0); LYMPHOCYTES % (AUTO) 27.8 % (13-45); MEAN CORPUSCULAR HEMOGLOBIN 28.2 pg (27.0-33.4); MEAN CORPUSCULAR HGB CONC 34.8 g/dL (32.0-36.0); MEAN CORPUSCULAR VOLUME 81 fl (80-97); MONOCYTES % (AUTO) 7.8 % (3-13); PLATELET COUNT 366 10^3/uL (150-450); RED BLOOD COUNT 5.22 10^6/uL (4.35-5.55); RED CELL DISTRIBUTION WIDTH 12.9 % (11.5-14.0); SEGMENTED NEUTROPHILS % (AUTO) 62.7 % (42-78); TOTAL CELLS COUNTED % (AUTO) 100 %; WHITE BLOOD COUNT 9.8 10^3/uL (4.0-10.5)
[2018-11-19 16:24] LABS: ALANINE AMINOTRANSFERASE 19 U/L (21-72); ALBUMIN 3.6 g/dL (3.5-5.0); ALKALINE PHOSPHATASE 94 U/L (38-126); ANION GAP 10 (5-19); ASPARTATE AMINO TRANSFERASE 13 U/L (17-59); BILIRUBIN,DIRECT 0.2 mg/dL (0.0-0.4); BILIRUBIN,TOTAL 0.8 mg/dL (0.2-1.3); BLOOD UREA NITROGEN 20 mg/dL (7-20); CALCIUM 10.4 mg/dL (8.4-10.2); CARBON DIOXIDE 21 mmol/L (22-30); CHLORIDE 103 mmol/L (98-107); CREATINE KINASE 42 U/L (55-170); GLUCOSE 284 mg/dL (75-110); POTASSIUM 4.6 mmol/L (3.6-5.0); TOTAL PROTEIN 6.1 g/dL (6.3-8.2)
--- NOTE | 2018-11-19 16:26 | RADIOLOGY REPORT (SQ) ---
EXAM DESCRIPTION: CHEST SINGLE VIEW COMPLETED DATE/TIME: 11/19/2018 4:19 pm REASON FOR STUDY: chest pain COMPARISON: 11/04/2018 EXAM PARAMETERS: NUMBER OF VIEWS: One view. TECHNIQUE: Single frontal radiographic view of the chest acquired. RADIATION DOSE: NA LIMITATIONS: None. FINDINGS: LUNGS AND PLEURA: No opacities, masses or pneumothorax. No pleural effusion. MEDIASTINUM AND HILAR STRUCTURES: No masses. Contour normal. HEART AND VASCULAR STRUCTURES: Heart normal in size. Normal vasculature. BONES: No acute findings. HARDWARE: CABG. OTHER: No other significant finding. IMPRESSION: NO ACUTE RADIOGRAPHIC FINDING IN THE CHEST. TECHNICAL DOCUMENTATION: JOB ID: [id number] [employer]- All Rights Reserved Reading location - IP/workstation name: [email or web address]
[2018-11-19 16:36] LABS: CREATINE KINASE MB 0.86 ng/mL (<4.55); TROPONIN I < 0.012 ng/mL
--- NOTE | 2018-11-19 18:31 | ER Document Report ---
ED General - General Chief Complaint: Fall Stated Complaint: CHEST PAIN/DIZZINESS Time Seen by Provider: 11/19/18 18:26 Primary Care Provider: [facility] [Provider Group] - Follow up as needed FREEMAN MCLAIN MD [ACTIVE STAFF] - Follow up as needed MICHAEL VARELA MD [Primary Care Provider] - Follow up as needed Notes: This is a 4-year-old male to the emergency department after falling. Patient wa s at his primary care doctor's office today when he got mad and left. Tripped over a berm and fell down. Did not lose his consciousness. Did not hit his head. Had some bleeding to his left foot but states that he cut it several days ago but never was seen. Denies any chest pain. States that he has chronic dizziness. Was seen here a few weeks ago for the same. Has a history of heart problems but denies any chest pain. Every now and then he has palpitations. TRAVEL OUTSIDE OF THE [place] IN LAST 30 DAYS: No - HPI Onset: Just prior to arrival Quality of pain: Achy Severity: Moderate Pain Level: 2 Associated symptoms: None - Related Data Allergies/Adverse Reactions: No Known Allergies Allergy (Verified 11/04/18 08:32) Past Medical History - General Information source: Patient - Social History Smoking Status: Unknown if Ever Smoked Frequency of alcohol use: None Drug Abuse: None Lives with: Alone Family History: Arthritis, CAD, Hyperlipidemia, Hypertension, Malignancy Patient has suicidal ideation: No Patient has homicidal ideation: No - Past Medical History Cardiac Medical History: Reports: Hx Heart Attack - 04/19, Hx Hypercholesterolemia, Hx Hypertension Pulmonary Medical History: Denies: Hx Tuberculosis Neurological Medical History: Reports: Hx Migraine Endocrine Medical History: Reports: Hx Diabetes Mellitus Type 2 Renal/ Medical History: Denies: Hx Peritoneal Dialysis GI Medical History: Reports: Hx Gastroesophageal Reflux Disease, Hx Hiatal Hernia Musculoskeletal Medical History: Reports Hx Arthritis Psychiatric Medical History: Reports: Hx Depression Past Surgical History: Reports: Hx Abdominal Surgery - hernia repair, Hx Cardiac Catheterization - Mar 2016, 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, Hx Inguinal Hernia - Immunizations Hx Diphtheria, Pertussis, Tetanus Vaccination: Yes Review of Systems - Review of Systems Notes: Constitutional: denies: Chills, Diaphoresis, Fever, Malaise, Weakness EENT: denies: Eye discharge, Blurred vision, Tearing, Double vision, Nose congestion, Nose discharge, Throat swelling, Mouth pain Cardiovascular: denies: Palpitations, Heart racing, Orthopnea, Dyspnea, Chest pain Respiratory: denies: Cough, Hurts to breathe, Wheezing, Shortness of breath Gastrointestinal: denies: Abdominal pain, Diarrhea, Nausea, Vomiting, Black stools, bright red blood in stool Genitourinary: denies: Burning, Dysuria, Discharge, Frequency, Flank pain, Hematuria Musculoskeletal: denies: Joint pain, Joint swelling, Muscle pain, Muscle stiffness, back pain Hematologic/Lymphatic: denies: Anemia, Easy bleeding, Easy bruising, Blood clots Neurological/Psychological: denies: Confusion, Dementia, Depression, Loss of consciousness. Dizziness and vertigo Skin: No lesions, no masses, no skin breakdown, no abscesses bleeding from the left second digit on the toe Physical Exam - Vital signs Vitals: Pulse Ox 98 11/19/18 15:38 Interpretation: Normal - General General appearance: Appears well, Alert - HEENT Head: Normocephalic, Atraumatic Eyes: Normal Pupils: PERRL - Respiratory Respiratory status: No respiratory distress Chest status: Nontender Breath sounds: Normal Chest palpation: Normal - Cardiovascular Rhythm: Regular Heart sounds: Normal auscultation Murmur: No - Abdominal Inspection: Normal Distension: No distension Bowel sounds: Normal Tenderness: Nontender Organomegaly: No organomegaly - Back Back: Normal, Nontender - Extremities General upper extremity: Normal inspection, Nontender, Normal color, Normal ROM, Normal temperature General lower extremity: Normal inspection, Nontender, Normal color, Normal ROM, Normal temperature, Normal weight bearing, Other - he has a small healing abrasion on the digit of the left foot.. No: Ross's sign - Neurological Neuro grossly intact: Yes Cognition: Normal Orientation: AAOx4 Vu Coma Scale Eye Opening: Spontaneous Vu Coma Scale Verbal: Oriented Vu Coma Scale Motor: Obeys Commands [place] Coma Scale Total: 15 Speech: Normal Motor strength normal: LUE, RUE, LLE, RLE Sensory: Normal - Psychological Associated symptoms: Normal affect, Normal mood - Skin Skin Temperature: Warm Skin Moisture: Dry Skin Color: Normal Course - Re-evaluation Re-evalutation: 11/19/18 19:56 What patient is describing is a panic attack. 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 He has a little abrasion on his toe but does not appear infected however he thinks that it is so we will start him on some antibiotics. There is no evidence of an open fracture. Has significant peripheral neuropathy however currently under treatment for that. He does not appear to be having a heart attack with 2- troponins and a recent work-up which was unremarkable. Patient is stable for outpatient work-up. Will DC at this time. 11/19/18 19:57 Laboratory 11/19/18 11/19/18 11/19/18 15:47 15:47 15:47 WBC 9.8 RBC 5.22 Hgb 14.7 Hct 42.3 MCV 81 MCH 28.2 MCHC 34.8 RDW 12.9 Plt Count 366 Seg Neutrophils % 62.7 Lymphocytes % 27.8 Monocytes % 7.8 Eosinophils % 0.7 Basophils % 1.0 Absolute Neutrophils 6.1 Absolute Lymphocytes 2.7 Absolute Monocytes 0.8 Absolute Eosinophils 0.1 Absolute Basophils 0.1 Sodium 134.0 L Potassium 4.6 Chloride 103 Carbon Dioxide 21 L Anion Gap 10 BUN 20 Creatinine 0.93 Est GFR ( Amer) > 60 Est GFR (Non-Af Amer) > 60 Glucose 284 H Calcium 10.4 H Total Bilirubin 0.8 Direct Bilirubin 0.2 Neonat Total Bilirubin Not Reportable Neonat Direct Bilirubin Not Reportable Neonat Indirect Bili Not Reportable AST 13 L ALT 19 L Alkaline Phosphatase 94 Creatine Kinase 42 L CK-MB (CK-2) 0.86 Troponin I < 0.012 Total Protein 6.1 L Albumin 3.6 11/19/18 11/19/18 15:47 18:43 WBC RBC Hgb Hct MCV MCH MCHC RDW Plt Count Seg Neutrophils % Lymphocytes % Monocytes % Eosinophils % Basophils % Absolute Neutrophils Absolute Lymphocytes Absolute Monocytes Absolute Eosinophils Absolute Basophils Sodium Potassium Chloride Carbon Dioxide Anion Gap BUN Creatinine Est GFR ( Amer) Est GFR (Non-Af Amer) Glucose Calcium Total Bilirubin Direct Bilirubin Neonat Total Bilirubin Neonat Direct Bilirubin Neonat Indirect Bili AST ALT Alkaline Phosphatase Creatine Kinase CK-MB (CK-2) Troponin I Cancelled < 0.012 Total Protein Albumin 11/19/18 20:53 Chest X-Ray 11/19/18 15:38 IMPRESSION: NO ACUTE RADIOGRAPHIC FINDING IN THE CHEST. Foot X-Ray 11/19/18 18:37 IMPRESSION: No evidence of acute osseous abnormality. - Vital Signs Vital signs: Temp Pulse Resp BP Pulse Ox 98.1 F 12 140/78 H 97 11/19/18 15:52 11/19/18 20:01 11/19/18 20:00 11/19/18 20:01 - Laboratory Result Diagrams: 11/19/18 15:47 11/19/18 15:47 Laboratory results interpreted by me: 11/19/18 15:47 Sodium 134.0 L Carbon Dioxide 21 L Glucose 284 H Calcium 10.4 H AST 13 L ALT 19 L Creatine Kinase 42 L Total Protein 6.1 L - EKG Interpretation by Me EKG shows normal: Sinus rhythm, [place], Intervals, QRS Complexes, ST-T Waves When compared to previous EKG there are: No significant change Discharge - Discharge Clinical Impression: Hyperventilation Toe abrasion, infected Qualifiers: Encounter type: initial encounter Laterality: left Qualified Code(s): S90.415A - Abrasion, left lesser toe(s), initial encounter Condition: Good Disposition: HOME, SELF-CARE Instructions: Abrasions ([facility]), Hyperventilation ([facility]) Additional Instructions: Please follow-up with your regular doctor. There is does not appear to be any evidence that you are having a heart attack. Due to the fact that this abrasion/laceration on your toe occurred a few days ago I am going to start you on some antibiotics. Please follow-up with your primary care doctor. Return for further concerns. Prescriptions: Cephalexin Monohydrate [Keflex 500 mg Capsule] 500 mg PO Q6H 5 Days #20 capsule Cephalexin Monohydrate [Keflex 500 mg Capsule] 500 mg PO Q6H 5 Days #20 capsule Referrals: MICHAEL VARELA MD [Primary Care Provider] - Follow up as needed [facility] [Provider Group] - Follow up as needed FREEMAN MCLAIN MD [ACTIVE STAFF] - Follow up as needed
[2018-11-19] MEDS ORDERED: DIPH/PERTUSS(ACELL)/TETANUS VAC/PF 0.5 ML SYR (>=10YO) IM ONE (18:39)
--- NOTE | 2018-11-19 19:27 | RADIOLOGY REPORT (SQ) ---
EXAM DESCRIPTION: FOOT LEFT 2 VIEWS COMPLETED DATE/TIME: 11/19/2018 7:10 pm REASON FOR STUDY: digit 2 painful COMPARISON: None. NUMBER OF VIEWS: Two views. TECHNIQUE: AP and lateral radiographic images acquired of the left foot. LIMITATIONS: None. FINDINGS: MINERALIZATION: Normal. BONES: No acute fracture or dislocation. No worrisome bone lesions. A tiny Achilles enthesophyte is present. JOINTS: No effusions. SOFT TISSUES: No soft tissue swelling. No foreign body. OTHER: No other significant finding. IMPRESSION: No evidence of acute osseous abnormality. TECHNICAL DOCUMENTATION: JOB ID: [id number] [employer]- All Rights Reserved Reading location - IP/workstation name: [email or web address]
[2018-11-19 20:03] VITALS: BP 140/78
--- NOTE | 2018-11-20 07:53 | EKG REPORT ---
SEVERITY:- ABNORMAL ECG - SINUS RHYTHM INFERIOR INFARCT, OLD : Confirmed by: Ivett Galvan MD 20-Nov-2018 07:52:21
== END 2018-11-19 20:31 | disposition home or self-care (01) ==
LOC: ER 15:34
DX: S90.415A Abrasion, left lesser toe(s), initial encounter (principal); R07.9 Chest pain, unspecified; R42 Dizziness and giddiness; R06.4 Hyperventilation; W01.0XXA Fall on same level from slipping, tripping and stumbling without subsequent striking against object, initial encounter; E78.00 Pure hypercholesterolemia, unspecified; I10 Essential (primary) hypertension; E11.9 Type 2 diabetes mellitus without complications; Z95.1 Presence of aortocoronary bypass graft; I25.2 Old myocardial infarction
CPT/HCPCS: 36415; 71045; 80053; 82550; 82553; 84484; 85025; 90471; 90715; 93005; 93010; 99285